=== PATIENT | male | born 1970 | race Caucasian/White ===

== ENCOUNTER 2023-05-11 15:41 | Inpatient (IN) ==
[2023-05-11] MEDS ORDERED: SODIUM CHLORIDE 0.9% 1,000 ML IV ONE (15:57)
[2023-05-11 16:21] LABS: Hematocrit (blood only) 43.3 % (42.0-52.0); Hemoglobin 15.7 g/dl (14.0-18.0); Mean Corpuscular Hemoglobin 30.6 pg (25.0-34.0); Mean Corpuscular Hgb Conc 36.3 g/dL (32.0-36.0); Mean Corpuscular Volume 84.4 fL (80.0-100.0); Mean Platelet Volume 8.8 fL (9.4-12.4); Platelet Count 208 K/uL (130-400); RDW Coefficient of Variation 12.7 % (11.5-14.5); RDW Standard Deviation 39.1 fL (36.4-46.3); Red Blood Count 5.13 M/uL (4.70-6.10); White Blood Count 16.61 K/ul (4.8-10.8)
[2023-05-11 16:33] LABS: Albumin Level 4.4 gm/dl (3.4-5.0); BUN Creatinine Ratio 14.5 (10-20); Bilirubin,Total 3.9 mg/dl (0.2-1.0); Calcium 8.7 mg/dl (8.6-10.3); Creatinine Clr Calc Pharmacy 70.4 ml/min; Est GFR (African American) 67.2 ml/min; Potassium 3.6 mmol/L (3.5-5.1); Total Protein 7.2 gm/dl (6.0-8.3)
[2023-05-11 16:38] LABS: Basophils # (auto) 0.03 K/uL (0.00-0.20); Basophils % (auto) 0.2 %; Dohle Bodies 1+; Immature Granulocytes # (auto) 0.06 K/uL (0.01-0.20); Immature Granulocytes % (auto) 0.4 %; Lymphocytes # (auto) 0.62 K/uL (1.20-3.40); Lymphocytes % (auto) 3.7 %; Monocytes # (auto) 0.63 K/uL (0.11-0.59); Monocytes % (auto) 3.8 %; Neutrophils # (auto) 15.27 K/uL (1.40-6.50); Neutrophils % (auto) 91.9 %
--- NOTE | 2023-05-11 17:35 | Ultrasound Report ---
ABDOMINAL ULTRASOUND, RIGHT UPPER QUADRANT HISTORY: Acute epigastric abdominal pain ro baljeet epigastric pain. COMPARISON: 10/23/2019 FINDINGS: Pancreas: The pancreas demonstrates a normal echotexture. Liver: 17.4 cm in length. Hepatic steatosis without hepatic mass identified. Gallbladder: Mild gallbladder distention with trace nonspecific pericholecystic fluid. No gallstones. Sonographic Geiger sign was unable to be assessed secondary to patient recently receiving pain medic ation. CBD: 0.5 cm. Right kidney: No hydronephrosis. IMPRESSION: 1. Trace nonspecific pericholecystic fluid. No cholelithiasis or gallbladder wall thickening. 2. Hepatomegaly with hepatic steatosis. 3. No biliary ductal dilation. ACT 112: Negative or not required by law. Electronically signed by: Corey Wilson M.D. 05/11/2023 5:34 PM
--- NOTE | 2023-05-11 17:45 | XRay Report ---
XR abdomen 2V w PA chest HISTORY: 52 years-old Male epigastric pain COMPARISON: 04/18/2022 TECHNIQUE: PA view the chest with erect and supine views of the abdomen FINDINGS: Cardiomediastinal and hilar silhouettes are within normal limits. No pneumothorax, pleural effusion, airspace consolidation or pulmonary edema. Mild right hemidiaphragmatic elevation. Bones appear gross ly intact. No pneumatosis or pneumoperitoneum. No urolith. Nonobstructive bowel gas pattern. IMPRESSION: 1. No acute process of the chest. 2. Nonobstructive bowel gas pattern. ACT 112: Negative or not required by law. The above report was generated using voice recognition software. It may contain grammatical, syntax o r spelling errors. Electronically signed by: Corey Wilson M.D. 05/11/2023 5:43 PM
[2023-05-11] MEDS ORDERED: MoRPHine SULFATE 4 MG/ML 1 ML CARP\\VIAL IV STA (18:11)
--- NOTE | 2023-05-11 21:02 | History & Physical Report ---
Date of Service May 11, 2023 Assessment & Plan (1) Abdominal pain: Plan: 52-year-old man with past medical significant for hyperlipidemia, hypothyroidism, sleep apnea, chronic kidney disease stage II, GERD, generalized osteoarthritis, Tourette's syndrome, chronic neck pain, PTSD, ADD, presents with ongoing abdominal pain. 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 for further recommendations Chest pain Says coming from abdomen We will follow serial enzymes and EKG History of hypothyroidism Continue other medications We will follow TSH Mild sleep apnea GERD on Protonix We will place on IV Pepcid Insomnia On Lunesta DVT prophylaxis SCDs for now Disposition med/telemetry Full code History of Present Illness Chief Complaint: Severe abdominal pain Primary Care Provider: Naman Shea MD 52-year-old man with past medical significant for hyperlipidemia, hypothyroidism, sleep apnea, chronic kidney disease stage II, GERD, generalized osteoarthritis, Tourette's syndrome, chronic neck pain, PTSD, ADD, presents with ongoing abdominal pain. Patient is having chronic abdominal pain states since he got shiga toxin infection in April 2022. Since yesterday pain got worse more in the epigastric and also lower abdomen radiating to back and right shoulder. Also with nausea and dry heaves. Feeling cold but no fevers. Couple of months ago he had some blood in the stool thought to be from hemorrhoids. Currently stools are loose but no blood in the stools. Urine is very dark. Has some chest pain but attributes it coming from his abdomen. When the pain is severe he feels short of breath. Having headaches. Vision is somewhat blurry. No runny nose or sore throat. No difficulty swallowing. Appetite is down. Says he is lost 30 pounds in last 2 months. He also follows with [facility]. Request test for stool for parasites. Past medical history as mentioned above Past surgical history. S/p cardiac cath. Colonoscopy. EGD. EGD with endoscopic ultrasound. Left rebuild eardrum structures. Inguinal hernia repair. Left shoulder arthroscopy. Social history. . No smoking. No alcohol use. No drug use. Family history. Paternal grandfather had colon cancer. Mother had cancer. Father had hyperlipidemia. Hypertension. Stroke. Sister hyperlipidemia. Brother had CABG at age 39. Uncle had cancers. Allergies Allergy/AdvReac Type Severity Reaction Status Date / Time bacitracin Allergy Intermediate ITCHING, Verified 05/11/23 19:30 SEEPING RASH neomycin Allergy Intermediate ITCHING, Verified 05/11/23 19:30 SEEPING RASH Penicillins Allergy Intermediate HIVES Verified 05/11/23 19:30 polymyxin B Allergy Intermediate ITCHING, Verified 05/11/23 19:30 SEEPING RASH quetiapine [From Seroquel] Allergy Intermediate Unknown Verified 05/11/23 19:30 ketamine AdvReac Severe VIOLENT Verified 05/11/23 19:30 BEHAVOIR trazodone AdvReac Severe CHEST Verified 05/11/23 19:30 HEAVINESS Home Medications Medication Instructions Recorded Confirmed Type eszopiclone 3 mg tablet 3 mg PO HS 05/11/23 05/11/23 History fluticasone propionate 230 1 puff inhalation BID 05/11/23 05/11/23 History mcg-salmeterol 21 mcg/actuation HFA inhaler (Advair HFA) lisinopril 2.5 mg tablet 2.5 mg PO QAM 05/11/23 05/11/23 History mupirocin 2 % topical ointment 1 applic topical BID PRN .. 05/11/23 05/11/23 History pantoprazole 40 mg tablet,delayed 40 mg PO QAM 05/11/23 05/11/23 History release Past Med/Surg History Medical History Anxiety BPH (benign prostatic hyperplasia) Cardiac murmur A CHILD GERD (gastroesophageal reflux disease) Hyperlipidemia Idiopathic insomnia Migraine Moderate obstructive sleep apnea Per 07/25/21 Sleep Disoder note- attempting to get patient set up with BiPAP- could not tolerate CPAP Multiple thyroid nodules Osteoarthritis NECK (NORMAL ROM), BACK PTSD (post-traumatic stress disorder) SEVERE Tourette disease Surgical History H/O left inguinal hernia repair H/O rotator cuff surgery L History of anesthesia reaction VERY VIOLENT WITH KETAMINE History of cardiac cath 2018 [facility]. Mild nonobstructive CAD. History of colonoscopy History of esophagogastroduodenoscopy (EGD) S/P ear surgery L EARDRUM REPAIR S/P thyroid biopsy Family History Brother Stroke Diabetes Myocardial infarction Father Alzheimer disease Parkinson disease Stroke Mother Brain cancer Sister High cholesterol Grandmother (Maternal) No problems noted. Grandfather (Maternal) No problems noted. Grandmother (Paternal) Diabetes Alzheimer disease Parkinson disease Grandfather (Paternal) Colorectal cancer Prostate cancer Diabetes Parkinson disease Family/Other Tourette syndrome Social History Smoking Status: Never smoker Second Hand Exposure: No; Do You Dip or Chew Tobacco: No; Hx Alcohol Use: No Hx Substance Use: No Preferred Language: Ethiopian Communication Ability: Effective Program Manager Rn Required: No Beliefs That Will Affect Care: None Current Living Situation: Spouse Current Living Situation Comment: lives at home with Other Information That Helps Us Care for You: No Feels Safe at Home: Yes Safety Concerns: Feels Safe At This Time Assistive Devices: Glasses Review of Systems Review of Systems: All systems reviewed & are unremarkable except as noted in HPI & below Physical Exam Physical Exam: General- Not in distress Head- atraumatic Eyes- PERRL,mild icterus. ENT- oropharynx clear Neck- supple, no JVD. Lungs- clear to auscultation, no wheezing or crakles. Heart- regular rhythm; no murmur, no gallop. Abdomen- normal bowel sounds, soft, tenderness in epigastric region and lower abdomen No distension or guarding seen. Extremities- no pretibial edema, no eryhtema seen. Neuro- alert, oriented x 3; PERRL, no facial palsy; no dysarthria; Non focal. Skin- warm & dry Results & Data Results & Data Vital Signs (Past 12 Hours) Vital Signs Temp Pulse Pulse Resp BP BP Pulse Ox 05/11/23 20:35 82 20 129/77 94 05/11/23 18:14 85 18 105/68 98 05/11/23 16:31 104 H 05/11/23 15:52 36.8 C 104 H 20 111/82 93 O2 Del Method 05/11/23 20:35 Room Air 05/11/23 18:14 Room Air 05/11/23 16:31 05/11/23 15:52 Room Air Diagnostic Findings Laboratory Results WBC 16.61 K/ul (4.8-10.8) H 05/11/23 16:03 RBC 5.13 M/uL (4.70-6.10) 05/11/23 16:03 Hgb 15.7 g/dl (14.0-18.0) 05/11/23 16:03 Hct 43.3 % (42.0-52.0) 05/11/23 16:03 MCV 84.4 fL (80.0-100.0) 05/11/23 16:03 MCH 30.6 pg (25.0-34.0) 05/11/23 16:03 MCHC 36.3 g/dL (32.0-36.0) H 05/11/23 16:03 RDW Std Deviation 39.1 fL (36.4-46.3) 05/11/23 16:03 RDW Coeff of Javier 12.7 % (11.5-14.5) 05/11/23 16:03 Plt Count 208 K/uL (130-400) 05/11/23 16:03 MPV 8.8 fL (9.4-12.4) L 05/11/23 16:03 Immature Gran % (Auto) 0.4 % 05/11/23 16:03 Neut % (Auto) 91.9 % 05/11/23 16:03 Lymph % (Auto) 3.7 % 05/11/23 16:03 [place] % (Auto) 3.8 % 05/11/23 16:03 Eos % (Auto) 0.0 % 05/11/23 16:03 Baso % (Auto) 0.2 % 05/11/23 16:03 Neut # (Auto) 15.27 K/uL (1.40-6.50) H 05/11/23 16:03 Lymph # (Auto) 0.62 K/uL (1.20-3.40) L 05/11/23 16:03 [place] # (Auto) 0.63 K/uL (0.11-0.59) H 05/11/23 16:03 Eos # (Auto) 0.00 K/uL (0.00-0.50) 05/11/23 16:03 Baso # (Auto) 0.03 K/uL (0.00-0.20) 05/11/23 16:03 Immature Gran # (Auto) 0.06 K/uL (0.01-0.20) 05/11/23 16:03 Dohle Bodies 1+ 05/11/23 16:03 Sodium 136 mmol/L (136-145) 05/11/23 16:03 Potassium 3.6 mmol/L (3.5-5.1) 05/11/23 16:03 Chloride 103 mmol/L (98-107) 05/11/23 16:03 Carbon Dioxide 23 mmol/L (21-32) 05/11/23 16:03 Anion Gap 10 (3-11) 05/11/23 16:03 BUN 20 mg/dl (6-23) 05/11/23 16:03 Creatinine 1.38 mg/dl (0.6-1.4) 05/11/23 16:03 Est Cr Clr Drug Dosing 70.4 ml/min 05/11/23 16:03 Est GFR ( Amer) 67.2 ml/min 05/11/23 16:03 Est GFR (Non-Af Amer) 58.0 ml/min 05/11/23 16:03 BUN/Creatinine Ratio 14.5 (10-20) 05/11/23 16:03 Glucose 150 mg/dl (70-99(Fasting)) H 05/11/23 16:03 Calcium 8.7 mg/dl (8.6-10.3) 05/11/23 16:03 Total Bilirubin 3.9 mg/dl (0.2-1.0) H 05/11/23 16:03 Direct Bilirubin 2.0 mg/dl (0-0.2) H 05/11/23 16:03 AST 183 U/L (13-39) H 05/11/23 16:03 ALT 284 U/L (7-52) H 05/11/23 16:03 Alkaline Phosphatase 130 U/L (34-104) H 05/11/23 16:03 Total Protein 7.2 gm/dl (6.0-8.3) 05/11/23 16:03 Albumin 4.4 gm/dl (3.4-5.0) 05/11/23 16:03 Lipase 5 U/L (11-82) L 05/11/23 16:03 Impressions Chest/Abdomen X-ray 05/11/23 16:49 XR abdomen 2V w PA chest HISTORY: 52 years-old Male epigastric pain COMPARISON: 04/18/2022 TECHNIQUE: PA view the chest with erect and supine views of the abdomen FINDINGS: Cardiomediastinal and hilar silhouettes are within normal limits. No pneumothorax, pleural effusion, airspace consolidation or pulmonary edema. Mild right hemidiaphragmatic elevation. Bones appear grossly intact. No pneumatosis or pneumoperitoneum. No urolith. Nonobstructive bowel gas pattern. IMPRESSION: 1. No acute process of the chest. 2. Nonobstructive bowel gas pattern. ACT 112: Negative or not required by law. The above report was generated using voice recognition software. It may contain grammatical, syntax or spelling errors. Electronically signed by: Corey Wilson M.D. 05/11/2023 5:43 PM Gallbladder Ultrasound 05/11/23 16:49 ABDOMINAL ULTRASOUND, RIGHT UPPER QUADRANT HISTORY: Acute epigastric abdominal pain ro baljeet epigastric pain. COMPARISON: 10/23/2019 FINDINGS: Pancreas: The pancreas demonstrates a normal echotexture. Liver: 17.4 cm in length. Hepatic steatosis without hepatic mass identified. Gallbladder: Mild gallbladder distention with trace nonspecific pericholecystic fluid. No gallstones. Sonographic Geiger sign was unable to be assessed secondary to patient recently receiving pain medication. CBD: 0.5 cm. Right kidney: No hydronephrosis. IMPRESSION: 1. Trace nonspecific pericholecystic fluid. No cholelithiasis or gallbladder wall thickening. 2. Hepatomegaly with hepatic steatosis. 3. No biliary ductal dilation. ACT 112: Negative or not required by law. Electronically signed by: Corey Wilson M.D. 05/11/2023 5:34 PM Code Status & VTE Plan VTE Prophylaxis Plan VTE Prophylaxis will be ordered: Yes
--- NOTE | 2023-05-11 21:07 | Emergency Department Note ---
History of Present Illness General Chief Complaint: Abdominal Pain Time Seen by Provider: 05/11/23 15:57 History of Present Illness Provider Complaint: abdominal pain Onset (ago): 2 day(s) Pain Consistency: intermittent Location: epigastric Radiation: back Severity: moderate Maximum Pain Intensity: 7 Current Pain Intensity: 6 Quality: + stabbing and + sharp Relieved By: + nothing Exacerbated By: + nothing Context: no foreign travel, no possible food poisoning, no sick contacts, no recent antibiotic use, no recent surgery/procedure or no recent injury Associated Symptoms: + nausea and + vomiting; no diarrhea, no fever, no chills, no constipation, no dysuria, no hematemesis, no hematochezia, no melena, no hematuria, no syncope, no headache, no neck pain, no chest pain and no breathing difficulty Home Medications Medication Instructions Recorded Confirmed Type eszopiclone 3 mg tablet 3 mg PO HS 05/11/23 05/11/23 History fluticasone propionate 230 1 puff inhalation BID 05/11/23 05/11/23 History mcg-salmeterol 21 mcg/actuation HFA inhaler (Advair HFA) lisinopril 2.5 mg tablet 2.5 mg PO QAM 05/11/23 05/11/23 History mupirocin 2 % topical ointment 1 applic topical BID PRN .. 05/11/23 05/11/23 History pantoprazole 40 mg tablet,delayed 40 mg PO QAM 05/11/23 05/11/23 History release Allergies Allergy/AdvReac Type Severity Reaction Status Date / Time bacitracin Allergy Intermediate ITCHING, Verified 05/11/23 19:30 SEEPING RASH neomycin Allergy Intermediate ITCHING, Verified 05/11/23 19:30 SEEPING RASH Penicillins Allergy Intermediate HIVES Verified 05/11/23 19:30 polymyxin B Allergy Intermediate ITCHING, Verified 05/11/23 19:30 SEEPING RASH quetiapine [From Seroquel] Allergy Intermediate Unknown Verified 05/11/23 19:30 ketamine AdvReac Severe VIOLENT Verified 05/11/23 19:30 BEHAVOIR trazodone AdvReac Severe CHEST Verified 05/11/23 19:30 HEAVINESS Past Med/Surg History Medical History Anxiety BPH (benign prostatic hyperplasia) Cardiac murmur A CHILD GERD (gastroesophageal reflux disease) Hyperlipidemia Idiopathic insomnia Migraine Moderate obstructive sleep apnea Per 07/25/21 Sleep Disoder note- attempting to get patient set up with BiPAP- could not tolerate CPAP Multiple thyroid nodules Osteoarthritis NECK (NORMAL ROM), BACK PTSD (post-traumatic stress disorder) SEVERE Tourette disease Surgical History H/O left inguinal hernia repair H/O rotator cuff surgery L History of anesthesia reaction VERY VIOLENT WITH KETAMINE History of cardiac cath 2018 [facility]. Mild nonobstructive CAD. History of colonoscopy History of esophagogastroduodenoscopy (EGD) S/P ear surgery L EARDRUM REPAIR S/P thyroid biopsy Family History Brother Stroke Diabetes Myocardial infarction Father Alzheimer disease Parkinson disease Stroke Mother Brain cancer Sister High cholesterol Grandmother (Maternal) No problems noted. Grandfather (Maternal) No problems noted. 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: No Beliefs That Will Affect Care: None Current Living Situation: Spouse Feels Safe at Home: Yes Assistive Devices: Glasses Physical Exam Vital Signs: Vital Signs - 24 hr 05/11/23 15:52 05/11/23 16:31 05/11/23 18:14 Temperature 36.8 C Temperature Source Oral Pulse Rate 104 H 104 H Pulse Rate [Finger ] 85 Respiratory Rate 20 18 Blood Pressure 111/82 Blood Pressure [Ri ght Arm] 105/68 Blood Pressure Antonietta n 91 Blood Pressure Antonietta n [Right Arm] 80 Blood Pressure Pos ition Semi-fowlers Blood Pressure Pos ition [Right Arm] Semi-fowlers Pulse Oximetry 93 98 Oxygen Delivery Me thod Room Air Room Air Sepsis Recent Feve r Within 48 Hours No Sepsis New/Unexpla ined Change in Men alvaro Status N/A Sepsis Action Take n by Nursing No Action Required 05/11/23 20:35 Temperature Temperature Source Pulse Rate Pulse Rate [Finger ] 82 Respiratory Rate 20 Blood Pressure Blood Pressure [Ri ght Arm] 129/77 Blood Pressure Antonietta n Blood Pressure Antonietta n [Right Arm] 94 Blood Pressure Pos ition Blood Pressure Pos ition [Right Arm] Semi-fowlers Pulse Oximetry 94 Oxygen Delivery Me thod Room Air Sepsis Recent Feve r Within 48 Hours Sepsis New/Unexpla ined Change in Men alvaro Status Sepsis Action Take n by Nursing Physical Exam: Physical Exam GENERAL: She is oriented to person, place, and time. She appears well-developed and well-nourished. She does not appear distressed. HENT: Exam performed. -Head: Normocephalic and atraumatic. -Right Ear: External ear normal. No mastoid erythema -Left Ear: External ear normal. No mastoid erythema -Mouth/Throat: The oropharynx is clear and moist. No trismus in the jaw. No dental abscesses or uvula swelling. No oropharyngeal exudate or tonsillar abscesses. EYES: Conjunctivae and EOM are normal.Right eye exhibits no discharge. Left eye exhibits no discharge. No scleral icterus. NECK: Normal range of motion. Neck supple. No JVD present. No tracheal deviation and normal range of motion present. CV: Normal rate, regular rhythm, normal heart sounds and intact distal pulses. There is no peripheral edema. Palpable radial pulses bue. PULM/CHEST: Effort normal and breath sounds normal. No respiratory distress. No stridor. She has no wheezes. She has no rales. -Chest Wall: She exhibits no tenderness. ABD: The abdomen is soft. Bowel sounds are normal. She has no distension. No mass is present. There is tenderness to palpation of the epigastric area. There is no rebound, no guarding, no Geiger's sign and no tenderness at McBurney's point. Rovsig negative MUSC/SKEL: Normal range of motion. There is no peripheral edema, tenderness or deformity. NEURO: Motor and sensation grossly intact. SKIN: Skin is warm and dry. She is not diaphoretic. PSYCH: She has a normal mood and affect. Behavior is normal. Judgment and thought content normal. Course Course 1557: The patient was evaluated in room C4. A complete history and physical exam was performed Cardiac monitoring: An order was placed for continuous cardiac monitoring. The monitor shows a rate of 80 with sinus rhythm interpreted by il 1855: Vital signs stable. Labs show leukocytosis of 16.61. Neutrophils 15.27. Total bilirubin 3.9 direct bilirubin 2 AST 183 ALT 284 alkaline phosphatase 130 lipase is 5. Ultrasound shows no cholecystitis cholelithiasis or biliary ductal dilatation. Acute abdominal series negative. Given the patient's continued abdominal pain and elevated liver function test, the patient will be admitted for GI evaluation and possible HIDA scan. Discussed case with Tiffany Griffin [facility] hospitalist who stated to admit to Dr. Rodríguez Administered Medications Discontinued Medications Sodium Chloride (Nss) 1,000 mls @ 999 mls/hr IV .Q1H1M ONE Stop: 05/11/23 16:57 Last Infusion: 05/11/23 18:42 Dose: 0 mls/hr Documented By: Admin: 05/11/23 16:09 Dose: 999 mls/hr Documented By: Morphine Sulfate (Morphine Sulfate 4 Mg/Ml 1 Ml Carp\Vial) 4 mg IV NOW STA Stop: 05/11/23 18:12 Last Admin: 05/11/23 18:14 Dose: 4 mg Documented By: Medical Decision Making Laboratory Data Attestation: I reviewed the patient's lab results. 05/11/23 16:03 05/11/23 16:03 Lab Results 05/11/23 05/11/23 05/11/23 Range/Units 16:03 16:03 16:03 WBC 16.61 H (4.8-10.8) K/ul RBC 5.13 (4.70-6.10) M/uL Hgb 15.7 (14.0-18.0) g/dl Hct 43.3 (42.0-52.0) % MCV 84.4 (80.0-100.0) fL MCH 30.6 (25.0-34.0) pg MCHC 36.3 H (32.0-36.0) g/dL RDW Std Deviation 39.1 (36.4-46.3) fL RDW Coeff of Javier 12.7 (11.5-14.5) % Plt Count 208 (130-400) K/uL MPV 8.8 L (9.4-12.4) fL Immature Gran % (Auto) 0.4 % Neut % (Auto) 91.9 % Lymph % (Auto) 3.7 % [place] % (Auto) 3.8 % Eos % (Auto) 0.0 % Baso % (Auto) 0.2 % Neut # (Auto) 15.27 H (1.40-6.50) K/uL Lymph # (Auto) 0.62 L (1.20-3.40) K/uL [place] # (Auto) 0.63 H (0.11-0.59) K/uL Eos # (Auto) 0.00 (0.00-0.50) K/uL Baso # (Auto) 0.03 (0.00-0.20) K/uL Immature Gran # (Auto) 0.06 (0.01-0.20) K/uL Dohle Bodies 1+ Sodium 136 (136-145) mmol/L Potassium 3.6 (3.5-5.1) mmol/L Chloride 103 (98-107) mmol/L Carbon Dioxide 23 (21-32) mmol/L Anion Gap 10 (3-11) BUN 20 (6-23) mg/dl Creatinine 1.38 (0.6-1.4) mg/dl Est Cr Clr Drug Dosing 70.4 ml/min Est GFR ( Amer) 67.2 ml/min Est GFR (Non-Af Amer) 58.0 ml/min BUN/Creatinine Ratio 14.5 (10-20) Glucose 150 H (70-99(Fasting)) mg/dl Calcium 8.7 (8.6-10.3) mg/dl Total Bilirubin 3.9 H (0.2-1.0) mg/dl Direct Bilirubin 2.0 H (0-0.2) mg/dl AST 183 H (13-39) U/L ALT 284 H (7-52) U/L Alkaline Phosphatase 130 H (34-104) U/L Total Protein 7.2 (6.0-8.3) gm/dl Albumin 4.4 (3.4-5.0) gm/dl Lipase 5 L (11-82) U/L Imaging Data Attestation: I personally reviewed and interpreted this imaging study as follows: My Impression: Acute abdominal series: Chest x-ray negative. Airway clear. No pneumothorax. No consolidation. No cardiomegaly or cephalization.. No free air under the diaphragm. No fractures of the skeletal structures. No air-fluid levels nonspecific bowel gas pattern. Radiologist's Impression: Chest/Abdomen X-ray 05/11/23 16:49 XR abdomen 2V w PA chest HISTORY: 52 years-old Male epigastric pain COMPARISON: 04/18/2022 TECHNIQUE: PA view the chest with erect and supine views of the abdomen FINDINGS: Cardiomediastinal and hilar silhouettes are within normal limits. No pneumothorax, pleural effusion, airspace consolidation or pulmonary edema. Mild right hemidiaphragmatic elevation. Bones appear grossly intact. No pneumatosis or pneumoperitoneum. No urolith. Nonobstructive bowel gas p attern. IMPRESSION: 1. No acute process of the chest. 2. Nonobstructive bowel gas pattern. ACT 112: Negative or not required by law. The above report was generated using voice recognition software. It may contain grammatical, syntax or spelling errors. Electronically signed by: Corey Wilson M.D. 05/11/2023 5:43 PM Gallbladder Ultrasound 05/11/23 16:49 ABDOMINAL ULTRASOUND, RIGHT UPPER QUADRANT HISTORY: Acute epigastric abdominal pain ro baljeet epigastric pain. COMPARISON: 10/23/2019 FINDINGS: Pancreas: The pancreas demonstrates a normal echotexture. Liver: 17.4 cm in length. Hepatic steatosis without hepatic mass identified. Gallbladder: Mild gallbladder distention with trace nonspecific pericholecystic fluid. No gallstones. Sonographic Geiger sign was unable to be assessed secondary to patient recently receiving pain medication. CBD: 0.5 cm. Right kidney: No hydronephrosis. IMPRESSION: 1. Trace nonspecific pericholecystic fluid. No cholelithiasis or gallbladder wall thickening. 2. Hepatomegaly with hepatic steatosis. 3. No biliary ductal dilation. ACT 112: Negative or not required by law. Electronically signed by: Corey Wilson M.D. 05/11/2023 5:34 PM [facility] Narrative 1557: The patient was evaluated in room C4. A complete history and physical exam was performed Cardiac monitoring: An order was placed for continuous cardiac monitoring. The monitor shows a rate of 80 with sinus rhythm interpreted by me 1855: Vital signs stable. Labs show leukocytosis of 16.61. Neutrophils 15.27. Total bilirubin 3.9 direct bilirubin 2 AST 183 ALT 284 alkaline phosphatase 130 lipase is 5. Ultrasound shows no cholecystitis cholelithiasis or biliary ductal dilatation. Acute abdominal series negative. Given the patient's continued abdominal pain and elevated liver function test, the patient will be admitted for GI evaluation and possible HIDA scan. Discussed case with Tiffany Griffin [facility] hospitalist who stated to admit to Dr. Rodríguez Impression & Plan Abdominal pain, Transaminitis Discharge Plan Visit Data Chief Complaint: Abdominal Pain ED Provider: Srinivasa Gregory Discharge Problem: Abdominal pain, Transaminitis Patient Disposition: Admitted As Inpatient Forms Stand Alone Forms: [facility] Prescriptions Prescriptions: No Action pantoprazole 40 mg tablet,delayed release (DR/EC) 40 mg PO QAM mupirocin 2 % ointment 1 applic TOPICAL BID PRN (Reason: ..) lisinopril 2.5 mg tablet 2.5 mg PO QAM eszopiclone 3 mg tablet 3 mg PO HS fluticasone propion-salmeterol [Advair HFA] 230-21 mcg/actuation HFA aerosol inhaler 1 puff INHALATION BID Referrals Referrals: Naman Shea MD [Primary Care Provider] -
[2023-05-11] MEDS ORDERED: SODIUM CHLORIDE 0.9% 1,000 ML IV SCH (21:15)
[2023-05-11] MEDS ORDERED: HYDROmorphone INJ 0.5 MG/0.5 ML SYR IV STA (22:09)
[2023-05-11 22:25] LABS: Troponin I High Sensitivity 6.8 pg/ml (0-20)
[2023-05-12] MEDS ORDERED: NITROGLYCERIN SL 0.4 MG/TAB TAB SL PRN (00:53)
[2023-05-12] MEDS ORDERED: MUPIROCIN 2% OINT 22 GM TUBE TOP PRN (00:53)
[2023-05-12] MEDS ORDERED: OPTIRAY 320 100ml IV ONE (01:24)
[2023-05-12] MEDS: HYDROmorphone INJ 0.5 MG/0.5 ML SYR IV PRN ×2 (01:49→09:23)
[2023-05-12] MEDS: FAMOTIDINE 20 MG in SYRINGE 3 ML IV SCH ×3 (01:49→20:41)
[2023-05-12] MEDS: ESZOPICLONE 1 MG TAB PO SCH ×2 (01:49→20:44)
[2023-05-12] MEDS: D5W AND 1/2NSS 1,000 ML IV SCH ×3 (01:50→21:40)
[2023-05-12] MEDS: FLUTICASONE/VILANTEROL 200/25MCG 14 PUFFS/INHALER INH SCH (01:53)
--- NOTE | 2023-05-12 04:08 | CT Scan Report ---
Exam(s): CT ABDOMEN + PELVIS With Contrast IV Amt: 90 ml opti 320 EXAM: CT Abdomen and Pelvis With Intravenous Contrast CLINICAL HISTORY: Reason for exam: severe epigastric and lower abdominal pain, lft. TECHNIQUE: Axial computed tomography images of the abdomen and pelvis with intravenous contrast. CTDI is 27.47 mGy and DLP is 1381.63 mGy-cm. Automated exposure control was utilized for the study. A dose lowering technique was utilized adhering to the principles of ALARA. CONTRAST: Patient received 90 ml opti 320 of IV contrast COMPARISON: No relevant prior studies available. FINDINGS: Lung bases: Unremarkable. No mass. No consolidation. ABDOMEN: Liver: Fatty infiltration of the liver. Gallbladder and bile ducts: Unremarkable. No calcified stones. No ductal dilation. Pancreas: Unremarkable. No mass. No ductal dilation. Spleen: Unremarkable. No splenomegaly. Adrenals: Unremarkable. No mass. Kidneys and ureters: Unremarkable. No solid mass. No hydronephrosis. Stomach and bowel: Unremarkable. No obstruction. No mucosal thickening. PELVIS: Appendix: No findings to suggest acute appendicitis. Bladder: Unremarkable. No mass. Reproductive: Unremarkable as visualized. ABDOMEN and PELVIS: Intraperitoneal space: Unremarkable. No free air. No significant fluid collection. Bones/joints: No acute fracture. No dislocation. Soft tissues: Unremarkable. Vasculature: Unremarkable. No abdominal aortic aneurysm. Lymph nodes: Unremarkable. No enlarged lymph nodes. IMPRESSION: No acute findings in the abdomen or pelvis. Electronically signed by: Hernan Conway MD 05/12/23 04:07 AM
[2023-05-12 05:17] LABS: Basophils # (auto) 0.02 K/uL (0.00-0.20); Basophils % (auto) 0.2 %; Eosinophils # (auto) 0.02 K/uL (0.00-0.50); Eosinophils % (auto) 0.2 %; Hematocrit (blood only) 40.2 % (42.0-52.0); Hemoglobin 14.2 g/dl (14.0-18.0); Immature Granulocytes # (auto) 0.03 K/uL (0.01-0.20); Immature Granulocytes % (auto) 0.3 %; Lymphocytes # (auto) 0.81 K/uL (1.20-3.40); Lymphocytes % (auto) 8.1 %; Mean Corpuscular Hemoglobin 30.2 pg (25.0-34.0); Mean Corpuscular Hgb Conc 35.3 g/dL (32.0-36.0); Mean Corpuscular Volume 85.5 fL (80.0-100.0); Mean Platelet Volume 9.1 fL (9.4-12.4); Monocytes # (auto) 0.62 K/uL (0.11-0.59); Monocytes % (auto) 6.2 %; Neutrophils # (auto) 8.48 K/uL (1.40-6.50); Platelet Count 170 K/uL (130-400); RDW Standard Deviation 40.4 fL (36.4-46.3); White Blood Count 9.98 K/ul (4.8-10.8)
[2023-05-12 05:32] LABS: BUN Creatinine Ratio 14.3 (10-20); Bilirubin Direct 2.4 mg/dl (0-0.2); Bilirubin,Total 4.5 mg/dl (0.2-1.0); Calcium 8.3 mg/dl (8.6-10.3); Creatinine Clr Calc Pharmacy 77.1 ml/min; Est GFR (Non-African American) 64.7 ml/min; Magnesium 1.8 mg/dl (1.7-2.4); Potassium 3.4 mmol/L (3.5-5.1); Total Protein 6.4 gm/dl (6.0-8.3)
[2023-05-12 05:39] LABS: Troponin I High Sensitivity 6.4 pg/ml (0-20)
[2023-05-12 05:48] LABS: Thyroid Stimulating Hormone 0.655 uIu/ml (0.300-4.500)
[2023-05-12] MEDS: PANTOprazole 40 MG TAB PO SCH (07:20)
--- NOTE | 2023-05-12 09:00 | Gastrointestinal Consultation ---
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 admitted with abd pain, fevers, chills, scleral icterus, dark urine, elevated Tbili, previous EUS reviewed, CT and ABD US reviewed NPO EUS today +/- ERCP Check acute hep, arsh, ama, asma Will defer repeat HIV screening to primary service Recommend ABX with biliary coverage given fevers last evening Anti emetics PRN Analgesia PRN Continued follow up for POZO w/ mild fibrosis as scheduled in office We appreciate assistance in the management of any serological abnormality and corrections to include: hemoglobin >7, INR <2, platelets >50,000, potassium levels >3.5 but <5.3, and sodium levels within 5 points of the reference range prior to endoscopic evaluation. Thank you for allowing us to participate in the care of this patient. Please call with any acute changes, questions or concerns. Please see addendum below with additional recommendation from my supervising physician. Supervising Physician Co-Signing Physician Notes Attending attestation I have seen, examined this patient, and agree with the findings and above by our mid-level provider GUILHERME Richards, with the following additions: - Chronic intermittant ruq and generalized abdominal pain - Now with worsened pain and worsened LFT's, and although no evidence of biliary obstruction, he has a compelling story and is at least moderate possibility for obstructive process that is acute given labs and pain. -Will require ancillary additional imaging, will plan for EUS +/- ERCP today - Continue NPO History of Present Illness Reason for Consultation: elevated LFTs Requesting Physician: Miguel Attending Physician: Leyda Rivera MD History of Present Illness 52 year old male with history of KRISHNA, dyslipidemia, hypothyroidism, CKD, Shiga toxin following with ID who is admitted w/ abd pain. GI was asked to evaluate. He notes chronic abd pain at least x 1 year. Upper abd, midline and RUQ. Intermittent. Severe. Radiates to his back. Some nausea, vomiting. Decreased appetite. Chronic diarrhea, denies black or bloody stools. noted scleral icterus 1 day ago. For about a week his urine has been darker. Has had about 20 lb weight loss. + fever + chills No CP, SOB. 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 ALT 233 ALKP 109 Denies ETOH Denies tylenol Denies supplements No IV/IN drug use history LB 2021: biopsy of the liver is consistent with steatosis and steatohepatitis (fatty liver disease). There was focal mild fibrosis (stage 1/4) with no e vidence of cirrhosis. CTAP 2022: iver: Fatty infiltration of the liver. Gallbladder and bile ducts: Unremarkable. No calcified stones. Noductal dilation. Pancreas: Unremarkable. No mass. No ductal dilation. ABD us 2022: . Trace nonspecific pericholecystic fluid. No cholelithiasis or gallbladder wall thickening. 2. Hepatomegaly with hepatic steatosis. 3. No biliary ductal dilation. EUS 2021: Normal esophagus. - Normal stomach. - Normal duodenal bulb and second portion of the duodenum. - Periampullary diverticulum. - There was no sign of significant pathology in the ampulla. - There was no sign of significant pathology in the common bile duct. - Hyperechoic material consistent with sludge was visualized endosonographically in the gallbladder. - There was abnormal echogenicity in the liver suggestive of fatty infiltration. Fine needle biopsy performed. - A 4 mm cyst was seen in the pancreatic body with no worrisome features likely a side branch IPMN. - There was no sign of significant pathology in the entire pancreas. - Endosonographic images of the left adrenal gland were unremarkable. - The celiac trunk was endosonographically normal. Colon 2019: The examined portion of the ileum was normal. - Two 6 mm polyps in the transverse colon, removed with a cold snare. Resected and retrieved. - Diverticulosis in the sigmoid colon. - Non-bleeding internal hemorrhoids. Allergies Allergy/AdvReac Type Severity Reaction Status Date / Time bacitracin Allergy Intermediate ITCHING, Verified 05/11/23 19:30 SEEPING RASH neomycin Allergy Intermediate ITCHING, Verified 05/11/23 19:30 SEEPING RASH Penicillins Allergy Intermediate HIVES Verified 05/11/23 19:30 polymyxin B Allergy Intermediate ITCHING, Verified 05/11/23 19:30 SEEPING RASH quetiapine [From Seroquel] Allergy Intermediate Unknown Verified 05/11/23 19:30 ketamine AdvReac Severe VIOLENT Verified 05/11/23 19:30 BEHAVOIR trazodone AdvReac Severe CHEST Verified 05/11/23 19:30 HEAVINESS Home Medications Medication Instructions Recorded Confirmed Type eszopiclone 3 mg tablet 3 mg PO HS 05/11/23 05/11/23 History fluticasone propionate 230 1 puff inhalation BID 05/11/23 05/11/23 History mcg-salmeterol 21 mcg/actuation HFA inhaler (Advair HFA) lisinopril 2.5 mg tablet 2.5 mg PO QAM 05/11/23 05/11/23 History mupirocin 2 % topical ointment 1 applic topical BID PRN .. 05/11/23 05/11/23 History pantoprazole 40 mg tablet,delayed 40 mg PO QAM 05/11/23 05/11/23 History release Patient History Medical History Anxiety BPH (benign prostatic hyperplasia) Cardiac murmur A CHILD GERD (gastroesophageal reflux disease) Hyperlipidemia Idiopathic insomnia Migraine Moderate obstructive sleep apnea Per 07/25/21 Sleep Disoder note- attempting to get patient set up with BiPAP- could not tolerate CPAP Multiple thyroid nodules Osteoarthritis NECK (NORMAL ROM), BACK PTSD (post-traumatic stress disorder) SEVERE Tourette disease Surgical History H/O left inguinal hernia repair H/O rotator cuff surgery L History of anesthesia reaction VERY VIOLENT WITH KETAMINE History of cardiac cath 2019 [facility]. Mild nonobstructive CAD. History of colonoscopy History of esophagogastroduodenoscopy (EGD) S/P ear surgery L EARDRUM REPAIR S/P thyroid biopsy Family History Brother Stroke Diabetes Myocardial infarction Father Alzheimer disease Parkinson disease Stroke Mother Brain cancer Sister High cholesterol Grandmother (Maternal) No problems noted. Grandfather (Maternal) No problems noted. Grandmother (Paternal) Diabetes Alzheimer disease Parkinson disease Grandfather (Paternal) Colorectal cancer Prostate cancer Diabetes Parkinson disease Family/Other Tourette syndrome Social History Smoking Status: Never smoker Second Hand Exposure: No; Do You Dip or Chew Tobacco: No; Hx Alcohol Use: No Hx Substance Use: No Preferred Language: Serbian Communication Ability: Effective Detacker Required: No Beliefs That Will Affect Care: None Current Living Situation: Spouse Current Living Situation Comment: lives at home with Other Information That Helps Us Care for You: No Feels Safe at Home: Yes Safety Concerns: Feels Safe At This Time Assistive Devices: Glasses Review of Systems Review of Systems: All systems reviewed & are unremarkable except as noted in HPI & below Physical Exam Constitutional: WD/WN, vitals as above Respiratory: normal respiratory effort, lungs clear to auscultation Cardiovascular: Rate/Rhythm: regular rate and regular rhythm Gastrointestinal (Abdomen): Inspection/Auscultation: normal bowel sounds Percussion/Palpation: + abdomen tender and abdomen soft; no guarding and abdomen not rigid Skin: no rashes, warm and dry Results & Data Vital Signs (Past 12 Hours) Vital Signs Temp Pulse Pulse Resp BP Pulse Ox O2 Del Method 05/12/23 07:15 Room Air 05/12/23 07:21 37.4 C 92 H 14 120/76 94 Room Air 05/12/23 03:09 37.7 C H 94 H 16 131/69 94 Room Air 05/12/23 01:28 112 H 05/12/23 00:54 37.8 C H 103 H 12 124/72 93 Room Air 05/11/23 23:00 85 20 129/77 98 Room Air Laboratory Results 05/12/23 05/12/23 05/12/23 Range/Units 04:38 04:38 04:38 WBC 9.98 (4.8-10.8) K/ul RBC 4.70 (4.70-6.10) M/uL Hgb 14.2 (14.0-18.0) g/dl Hct 40.2 L (42.0-52.0) % MCV 85.5 (80.0-100.0) fL MCH 30.2 (25.0-34.0) pg MCHC 35.3 (32.0-36.0) g/dL RDW Std Deviation 40.4 (36.4-46.3) fL RDW Coeff of Javier 13.0 (11.5-14.5) % Plt Count 170 (130-400) K/uL MPV 9.1 L (9.4-12.4) fL Immature Gran % (Auto) 0.3 % Neut % (Auto) 85.0 % Lymph % (Auto) 8.1 % [place] % (Auto) 6.2 % Eos % (Auto) 0.2 % Baso % (Auto) 0.2 % Neut # (Auto) 8.48 H (1.40-6.50) K/uL Lymph # (Auto) 0.81 L (1.20-3.40) K/uL [place] # (Auto) 0.62 H (0.11-0.59) K/uL Eos # (Auto) 0.02 (0.00-0.50) K/uL Baso # (Auto) 0.02 (0.00-0.20) K/uL Immature Gran # (Auto) 0.03 (0.01-0.20) K/uL Dohle Bodies Sodium 135 L (136-145) mmol/L Potassium 3.4 L (3.5-5.1) mmol/L Chloride 105 (98-107) mmol/L Carbon Dioxide 24 (21-32) mmol/L Anion Gap 6 (3-11) BUN 18 (6-23) mg/dl Creatinine 1.26 (0.6-1.4) mg/dl Est Cr Clr Drug Dosing 77.1 ml/min Est GFR ( Amer) 75.0 ml/min Est GFR (Non-Af Amer) 64.7 ml/min BUN/Creatinine Ratio 14.3 (10-20) Glucose 155 H (70-99(Fasting)) mg/dl Calcium 8.3 L (8.6-10.3) mg/dl Magnesium 1.8 (1.7-2.4) mg/dl Total Bilirubin 4.5 H (0.2-1.0) mg/dl Direct Bilirubin 2.4 H (0-0.2) mg/dl AST 115 H (13-39) U/L ALT 233 H (7-52) U/L Alkaline Phosphatase 109 H (34-104) U/L Troponin I High Sens 6.4 (0-20) pg/ml Total Protein 6.4 (6.0-8.3) gm/dl Albumin 4.0 (3.4-5.0) gm/dl Lipase (11-82) U/L TSH 0.655 (0.300-4.500) uIu/ml Hepatitis A IgM Ab Pending Hep Bs Antigen Pending Hep Bs Ag Confirmation Pending Hep B Core IgM Ab Pending Hepatitis C Ab (EIA) Pending 05/11/23 05/11/23 05/11/23 Range/Units 16:03 16:03 16:03 WBC 16.61 H (4.8-10.8) K/ul RBC 5.13 (4.70-6.10) M/uL Hgb 15.7 (14.0-18.0) g/dl Hct 43.3 (42.0-52.0) % MCV 84.4 (80.0-100.0) fL MCH 30.6 (25.0-34.0) pg MCHC 36.3 H (32.0-36.0) g/dL RDW Std Deviation 39.1 (36.4-46.3) fL RDW Coeff of Javier 12.7 (11.5-14.5) % Plt Count 208 (130-400) K/uL MPV 8.8 L (9.4-12.4) fL Immature Gran % (Auto) 0.4 % Neut % (Auto) 91.9 % Lymph % (Auto) 3.7 % [place] % (Auto) 3.8 % Eos % (Auto) 0.0 % Baso % (Auto) 0.2 % Neut # (Auto) 15.27 H (1.40-6.50) K/uL Lymph # (Auto) 0.62 L (1.20-3.40) K/uL [place] # (Auto) 0.63 H (0.11-0.59) K/uL Eos # (Auto) 0.00 (0.00-0.50) K/uL Baso # (Auto) 0.03 (0.00-0.20) K/uL Immature Gran # (Auto) 0.06 (0.01-0.20) K/uL Dohle Bodies 1+ Sodium 136 (136-145) mmol/L Potassium 3.6 (3.5-5.1) mmol/L Chloride 103 (98-107) mmol/L Carbon Dioxide 23 (21-32) mmol/L Anion Gap 10 (3-11) BUN 20 (6-23) mg/dl Creatinine 1.38 (0.6-1.4) mg/dl Est Cr Clr Drug Dosing 70.4 ml/min Est GFR ( Amer) 67.2 ml/min Est GFR (Non-Af Amer) 58.0 ml/min BUN/Creatinine Ratio 14.5 (10-20) Glucose 150 H (70-99(Fasting)) mg/dl Calcium 8.7 (8.6-10.3) mg/dl Magnesium (1.7-2.4) mg/dl Total Bilirubin 3.9 H (0.2-1.0) mg/dl Direct Bilirubin 2.0 H (0-0.2) mg/dl AST 183 H (13-39) U/L ALT 284 H (7-52) U/L Alkaline Phosphatase 130 H (34-104) U/L Troponin I High Sens 6.8 (0-20) pg/ml Total Protein 7.2 (6.0-8.3) gm/dl Albumin 4.4 (3.4-5.0) gm/dl Lipase 5 L (11-82) U/L TSH (0.300-4.500) uIu/ml Hepatitis A IgM Ab Hep Bs Antigen Hep Bs Ag Confirmation Hep B Core IgM Ab Hepatitis C Ab (EIA)
[2023-05-12] MEDS: ONDANSETRON INJ 2 MG/ML 2 ML VIAL IV PRN (09:19)
[2023-05-12] MEDS: POTASSIUM CHLORIDE / WTR 10 MEQ/100 ML PLCT IV SCH ×2 (09:19→10:18)
[2023-05-12] MEDS: CIPROFLOXACIN / D5W 400 MG/200 ML BAG IV SCH ×2 (11:51→22:25)
[2023-05-12] MEDS: metroNIDAZOLE 500 MG/100 ML BAG IV SCH ×2 (12:19→18:27)
--- NOTE | 2023-05-12 12:29 | Electrocardiogram Report ---
Test Reason : Blood Pressure : / mmHG Vent. Rate : 082 BPM Atrial Rate : 082 BPM P-R Int : 186 ms QRS Dur : 088 ms QT Int : 392 ms P-R-T Axes : 045 005 036 degrees QTc Int : 457 ms Normal sinus rhythm Nonspecific ST abnormality Abnormal ECG Confirmed by Vaughn Peter ([id number]) on 05/12/2023 12:29:31 PM Referred By: REFERRED SELF Confirmed By:Kavon Peter
--- NOTE | 2023-05-12 12:37 | Anesthesiology Consultation ---
Date of Service May 12, 2023 Assessment & Plan Chart Review Chart Review: Acceptable Risk for Surgery and Patient NOT seen in Pre Admission Testing Consults Requested none History Surgery Operation Date: 05/12/23 07:00 Proposed Procedures p Endoscopic Retrograde Cholangiopancreato - Valentina Marquez DO s Endoscopic Ultrasonography Upper - Valentina Marquez DO Height/Weight Height: 5 ft 8 in Weight: 98.5 kg Allergies Allergy/AdvReac Type Severity Reaction Status Date / Time bacitracin Allergy Intermediate ITCHING, Verified 05/11/23 19:30 SEEPING RASH neomycin Allergy Intermediate ITCHING, Verified 05/11/23 19:30 SEEPING RASH Penicillins Allergy Intermediate HIVES Verified 05/11/23 19:30 polymyxin B Allergy Intermediate ITCHING, Verified 05/11/23 19:30 SEEPING RASH quetiapine [From Seroquel] Allergy Intermediate Unknown Verified 05/11/23 19:30 ketamine AdvReac Severe VIOLENT Verified 05/11/23 19:30 BEHAVOIR trazodone AdvReac Severe CHEST Verified 05/11/23 19:30 HEAVINESS Medications Home Medications Medication Instructions Recorded Confirmed Last Taken eszopiclone 3 mg tablet 3 mg PO HS 05/11/23 05/11/23 Unknown fluticasone propionate 230 1 puff inhalation BID 05/11/23 05/11/23 Unknown mcg-salmeterol 21 mcg/actuation HFA inhaler (Advair HFA) lisinopril 2.5 mg tablet 2.5 mg PO QAM 05/11/23 05/11/23 Unknown mupirocin 2 % topical ointment 1 applic topical BID PRN .. 05/11/23 05/11/23 Unknown pantoprazole 40 mg tablet,delayed 40 mg PO QAM 05/11/23 05/11/23 Unknown release Active Medications Generic Name Dose Route Start Last Admin Trade Name Freq PRN Reason Stop Dose Admin Eszopiclone 3 mg 05/12/23 00:53 05/12/23 01:49 Eszopiclone 1 Mg Tab PO 06/11/23 00:52 3 mg HS KEVIN Administration Fluticasone/Vilanterol 1 puffs 05/12/23 01:15 05/12/23 01:53 Fluticasone/Vilanterol 200/25mcg 14 Puffs/Inhaler INH 06/11/23 01:14 Not Given DAILY KEVIN Hydromorphone HCl 0.5 mg 05/12/23 00:53 05/12/23 09:23 Hydromorphone Inj 0.5 Mg/0.5 Ml Syr IV 05/26/23 00:52 0.5 mg Q3H PRN Administration Pain Dextrose/Sodium Chloride 1,000 mls @ 125 mls/hr 05/12/23 00:53 05/12/23 12:19 D5w And 1/2nss IV 06/11/23 00:52 0 mls/hr .Q8H KEVIN Infusion Famotidine 20 mg/ Syringe 5 mls @ 2.5 mls/min 05/12/23 00:53 05/12/23 07:20 IV 06/11/23 00:52 2.5 mls/min BID KEVIN Administration Ciprofloxacin 400 mg in 200 mls @ 100 mls/hr 05/12/23 11:15 05/12/23 11:51 Cipro / D5w IV 05/22/23 11:14 100 mls/hr Q12H KEVIN Administration Protocol Metronidazole 500 mg in 100 mls @ 100 mls/hr 05/12/23 11:15 05/12/23 12:19 Flagyl IV 05/22/23 11:14 100 mls/hr Q8H KEVIN Administration Protocol Ondansetron HCl 4 mg 05/12/23 00:53 05/12/23 09:19 Ondansetron Inj 2 Mg/Ml 2 Ml Vial IV 06/11/23 00:52 4 mg Q6H PRN Administration Nausea Pantoprazole Sodium 40 mg 05/12/23 09:00 05/12/23 07:20 Pantoprazole 40 Mg Tab PO 06/11/23 08:59 40 mg QAM KEVIN Administration NPO Date Last Intake of Fluids: 05/12/23 Time Last Intake of Fluids: 10:30 Last Intake of Fluids Comment: water Date Last Intake of Solids: 05/11/23 Time Last Intake of Solids: 22:30 Past Medical History Medical History Anxiety BPH (benign prostatic hyperplasia) Cardiac murmur A CHILD GERD (gastroesophageal reflux disease) Hyperlipidemia Idiopathic insomnia Migraine Moderate obstructive sleep apnea Per 07/25/21 Sleep Disoder note- attempting to get patient set up with BiPAP- could not tolerate CPAP Multiple thyroid nodules Osteoarthritis NECK (NORMAL ROM), BACK PTSD (post-traumatic stress disorder) SEVERE Tourette disease Past Family History Family History Brother Stroke Diabetes Myocardial infarction Father Alzheimer disease Parkinson disease Stroke Mother Brain cancer Sister High cholesterol Grandmother (Maternal) No problems noted. Grandfather (Maternal) No problems noted. Grandmother (Paternal) Diabetes Alzheimer disease Parkinson disease Grandfather (Paternal) Colorectal cancer Prostate cancer Diabetes Parkinson disease Family/Other Tourette syndrome Past Surgical History Surgical History H/O left inguinal hernia repair H/O rotator cuff surgery L History of anesthesia reaction VERY VIOLENT WITH KETAMINE History of cardiac cath 2019 [facility]. Mild nonobstructive CAD. History of colonoscopy History of esophagogastroduodenoscopy (EGD) S/P ear surgery L EARDRUM REPAIR S/P thyroid biopsy Social History Smoking Status: Never smoker Do You Dip or Chew Tobacco: No Hx Alcohol Use: No Hx Substance Use: No substance use type: does not use Physical Exam Vital Signs Last Vital Signs Temp 36.8 C 05/12/23 12:29 Pulse 88 05/12/23 12:29 Resp 20 05/12/23 12:29 BP 117/84 05/12/23 12:29 Pulse Ox 97 05/12/23 12:29 O2 Del Method Room Air 05/12/23 12:29 Testing Laboratory Results 05/12/23 04:38 05/12/23 04:38 Electrocardiogram Date: 05/12/23 Normal sinus rhythm When compared with ECG of 11-MAY-2023 21:21, (unconfirmed) Minimal criteria for Inferior infarct are no longer Present Nonspecific T wave abnormality now evident in Anterior leads Confirmed by Vuaghn Peter ([id number]) on 05/12/2023 12:40:15 PM Cardiac Catheterization Date: 07/19/19 CAD Presenation: Stable angina Anginal Classification: CCS II Heart Failure: No Stress Studies Past 6 Months: No Coronary Anatomy Dominant: Right Left Main (% Stenosis): Normal LAD (% Stenosis): Proximal (10%) and Mid (20%) D1 (% Stenosis): Normal D2 (% Stenosis): Normal D3 (% Stenosis): Normal Circumflex (% Stenosis): Ostial (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
--- NOTE | 2023-05-12 12:40 | Electrocardiogram Report ---
Test Reason : Blood Pressure : / mmHG Vent. Rate : 088 BPM Atrial Rate : 088 BPM P-R Int : 164 ms QRS Dur : 088 ms QT Int : 356 ms P-R-T Axes : 058 040 062 degrees QTc Int : 430 ms Normal sinus rhythm When compared with ECG of 11-MAY-2023 21:21, (unconfirmed) Minimal criteria for Inferior infarct are no longer Present Nonspecific T wave abnormality now evident in Anterior leads Confirmed by Vaughn Peter ([id number]) on 05/12/2023 12:40:15 PM Referred By: REFERRED SELF Confirmed By:Kavon Peter
[2023-05-12] MEDS ORDERED: fentaNYL citrate PF 100 MCG/2 ML VIAL ONE (12:57)
[2023-05-12] MEDS ORDERED: DEXAMETHASONE SOD INJ 4 MG/ML VIAL ONE (12:57)
[2023-05-12] MEDS ORDERED: PROPOFOL IV EMULSION 10 MG/ML 20 ML VIAL IV ONE (12:57)
[2023-05-12] MEDS ORDERED: ATROPINE SULFATE 0.1 MG/ML 10ML SYR IV PRN (12:57)
[2023-05-12] MEDS ORDERED: ONDANSETRON INJ 2 MG/ML 2 ML VIAL ONE (12:57)
[2023-05-12] MEDS ORDERED: ePHEDrine sulfate 50 MG/ML AMP IV PRN (12:57)
[2023-05-12] MEDS ORDERED: LIDOCAINE 2% 2 ML VIAL/AMP(20MG/ML) INFIL ONE (12:57)
[2023-05-12] MEDS ORDERED: ONDANSETRON INJ 2 MG/ML 2 ML VIAL IV PRN (12:57)
[2023-05-12] MEDS ORDERED: MIDAZOLAM HCL 1 MG/ML 2ML VIAL ONE (12:57)
[2023-05-12] MEDS ORDERED: fentaNYL citrate PF 100 MCG/2 ML VIAL IV PRN (12:57)
[2023-05-12] MEDS ORDERED: ROCURONIUM BROMIDE 10 MG/ML 5 ML VIAL IV ONE (12:57)
[2023-05-12] MEDS ORDERED: PROMETHAZINE HCL 12.5 MG in SODIUM CHLORIDE 0.9% 50 ML IV PRN ×2 (12:57→16:38)
--- NOTE | 2023-05-12 13:03 | History & Physical Bridge Note ---
Date of Service May 12, 2023 History & Physical Bridge Note I have examined the patient, reviewed the History & Physical and in the interval since the performance of the History & Physical I have noted the following changes of clinical significance: no changes noted. The patient has a history of nausea, vomitting, abdominal pain and a new elevation of his liver enzymes. We are planning for EGD with EUS and possible ERCP or liver biopsy. We have discussed the risks to include bleeding, infection, perforation, pain, pancreatitis, and failed biliary cannulation.
[2023-05-12] MEDS ORDERED: DexMEDEtomidine HCL IV 100 MCG/ML VIAL IV ONE (13:09)
[2023-05-12] MEDS ORDERED: INDOMETHACIN 50 MG SUPP PR ONE (13:13)
--- NOTE | 2023-05-12 13:34 | GI REPORT ---
Patient Name: Pito Aguilera Procedure Date: 05/12/2023 12:52 PM Date of : 1970 Admit Type: Inpatient Age: 52 Gender: Male Attending MD: Valentina Marquez DO, Procedure: Upper GI endoscopy Providers: Valentina Marquez DO Referring MD: Leyda Rivera Md Indications: Epigastric abdominal pain Medicines: General Anesthesia Complications: No immediate complications. Estimated blood loss: Minimal. Estimated Blood Loss: Estimated blood loss was minimal. Procedure: Pre-Anesthesia Assessment: - Prior to the procedure, a History and Physical was performed, and patient medications, allergies and sensitivities were reviewed. The patient's tolerance of previous anesthesia was reviewed. - The risks and benefits of the procedure and the sedation options and risks were discussed with the patient. All questions were answered and informed consent was obtained. - Patient identification and proposed procedure were verified prior to the procedure by the physician, the nurse and the railcar switchman. The procedure was verified in the procedure room. - Pre-procedure physical examination revealed no contraindications to sedation. - ASA Grade Assessment: II - A patient with mild systemic disease. - After reviewing the risks and benefits, the patient was deemed in satisfactory condition to undergo the procedure. - The anesthesia plan was to use general anesthesia. - Immediately prior to administration of medications, the patient was re-assessed for adequacy to receive sedatives. - The heart rate, respiratory rate, oxygen saturations, blood pressure, adequacy of pulmonary ventilation, and response to care were monitored throughout the procedure. - The physical status of the patient was re-assessed after the procedure. After obtaining informed consent, the endoscope was passed under direct vision. Throughout the procedure, the patient's blood pressure, pulse, and oxygen saturations were monitored continuously. The Scope was introduced through the mouth, and advanced to the third part of duodenum. The upper GI endoscopy was accomplished without difficulty. The patient tolerated the procedure well. Findings: The examined esophagus was normal. The Z-line was regular and was found 38 cm from the incisors. The entire examined stomach was normal. The examined duodenum was normal. Impression: - Normal esophagus. - Z-line regular, 38 cm from the incisors. - Normal stomach. - Normal examined duodenum. - No specimens collected. Recommendation: - Perform an upper endoscopic ultrasound (UEUS) today. Valentina Marquez D.O. Valentina Marquez, DO 05/12/2023 1:33:52 PM This report has been signed electronically. Note Initiated On: 05/12/2023 12:52 PM Number of Addenda: 0 I attest to the content of the Intraoperative Record and orders documented therein, exceptions below {[id number]}
--- NOTE | 2023-05-12 13:46 | GI REPORT ---
Patient Name: Pito Aguilera Procedure Date: 05/12/2023 12:52 PM Date of : 1970 Admit Type: Inpatient Age: 52 Gender: Male Attending MD: Valentina Marquez DO, Procedure: Upper EUS Providers: Valentina Marquez DO Referring MD: Referred Self Indications: Elevated liver enzymes, Suspected choledocholithiasis Medicines: General Anesthesia Complications: No immediate complications. Estimated blood loss: Minimal. Estimated Blood Loss: Estimated blood loss was minimal. Procedure: Pre-Anesthesia Assessment: - Prior to the procedure, a History and Physical was performed, and patient medications, allergies and sensitivities were reviewed. The patient's tolerance of previous anesthesia was reviewed. - The risks and benefits of the procedure and the sedation options and risks were discussed with the patient. All questions were answered and informed consent was obtained. - Patient identification and proposed procedure were verified prior to the procedure by the physician, the nurse and the fashion intern. The procedure was verified in the procedure room. - Pre-procedure physical examination revealed no contraindications to sedation. - ASA Grade Assessment: II - A patient with mild systemic disease. - After reviewing the risks and benefits, the patient was deemed in satisfactory condition to undergo the procedure. - The anesthesia plan was to use general anesthesia. - Immediately prior to administration of medications, the patient was re-assessed for adequacy to receive sedatives. - The heart rate, respiratory rate, oxygen saturations, blood pressure, adequacy of pulmonary ventilation, and response to care were monitored throughout the procedure. - The physical status of the patient was re-assessed after the procedure. After obtaining informed consent, the endoscope was passed under direct vision. Throughout the procedure, the patient's blood pressure, pulse, and oxygen saturations were monitored continuously. The Endosonoscope was introduced through the mouth, and advanced to the second part of duodenum. The upper EUS was accomplished without difficulty. The patient tolerated the procedure well. Findings: ENDOSONOGRAPHIC FINDING: : There was dilation in the common bile duct which measured up to 8 mm. Two stones were visualized endosonographically in the common bile duct. They were hyperechoic and characterized by shadowing. Multiple stones were visualized endosonographically in the gallbladder. They were hyperechoic. Moderate hyperechoic material consistent with sludge was visualized endosonographically in the gallbladder. There was abnormal echogenicity in the visualized portion of the liver. This area was hyperechoic. There was no sign of significant endosonographic abnormality in the entire pancreas. The pancreatic duct measured up to 2 mm in diameter. No masses, no cysts, no calcifications, the pancreatic duct was thin in caliber. No lymphadenopathy seen. There was no sign of significant endosonographic abnormality in the left adrenal gland. No adrenal gland enlargement was identified. Impression: - There was dilation in the common bile duct which measured up to 8 mm. - Two stones were visualized endosonographically in the common bile duct. - Multiple stones were visualized endosonographically in the gallbladder. - Hyperechoic material consistent with sludge was visualized endosonographically in the gallbladder. - There was abnormal echogenicity in the visualized portion of the liver. This was hyperechoic. Tissue has not been obtained. However, the endosonographic appearance is consistent with fatty infiltration. - There was no sign of significant pathology in the entire pancreas. - Endosonographic images of the left adrenal gland were unremarkable. - No specimens collected. Recommendation: - Perform an ERCP today. Valentina Marquez D.O. Valentina Marquez DO 05/12/2023 1:46:17 PM This report has been signed electronically. Note Initiated On: 05/12/2023 12:52 PM Number of Addenda: 0 I attest to the content of the Intraoperative Record and orders documented therein, exceptions below {[id number]}
--- NOTE | 2023-05-12 14:18 | Post Operative Brief Note ---
Immediate Post Op Note v1 Date of Surgery May 12, 2023 Pre & Post Diagnosis Operation Date: 05/12/23 07:00 Pre-Op Diagnosis: ABDOMINAL PAIN, ELEVATED LFT, CHEST PAIN Post-Op Diagnosis: common bile duct stones I identified the patient and participated in the time-out.: Yes Procedure Operation Date: 05/12/23 07:00 Actual Procedures p Esophagogastroduodenoscopy - Valentina Marquez DO s Endoscopic Ultrasonography Upper - Valentina Marquez DO p Endoscopic Retrograde Cholangiopancreato with spincterotomy, balloon sweep, stent placement - Valentina Marquez DO Surgeon Valentina Marquez, Drug Clerk none Estimated Blood Loss 0 Findings Consistent with Post-Op Diagnosis
--- NOTE | 2023-05-12 14:18 | GI REPORT ---
Patient Name: Pito Aguilera Procedure Date: 05/12/2023 12:53 PM Date of : 1970 Admit Type: Inpatient Age: 52 Gender: Male Attending MD: Valentina Marquez DO, Procedure: ERCP Providers: Valentina Marquez DO Referring MD: Leyda Rivera Md Indications: Abdominal pain of suspected biliary origin, Bile duct stone on Ultrasound, Elevated liver enzymes Medicines: General Anesthesia Complications: No immediate complications. Estimated blood loss: Minimal. Estimated Blood Loss: Estimated blood loss was minimal. Procedure: Pre-Anesthesia Assessment: - Prior to the procedure, a History and Physical was performed, and patient medications, allergies and sensitivities were reviewed. The patient's tolerance of previous anesthesia was reviewed. - The risks and benefits of the procedure and the sedation options and risks were discussed with the patient. All questions were answered and informed consent was obtained. - Patient identification and proposed procedure were verified prior to the procedure by the physician, the nurse and the import/export analyst. The procedure was verified in the procedure room. - Pre-procedure physical examination revealed no contraindications to sedation. - ASA Grade Assessment: II - A patient with mild systemic disease. - After reviewing the risks and benefits, the patient was deemed in satisfactory condition to undergo the procedure. - The anesthesia plan was to use general anesthesia. - Immediately prior to administration of medications, the patient was re-assessed for adequacy to receive sedatives. - The heart rate, respiratory rate, oxygen saturations, blood pressure, adequacy of pulmonary ventilation, and response to care were monitored throughout the procedure. - The physical status of the patient was re-assessed after the procedure. After obtaining informed consent, the scope was passed under direct vision. Throughout the procedure, the patient's blood pressure, pulse, and oxygen saturations were monitored continuously. The Duodenoscope was introduced through the mouth, and advanced to the duodenum and used to cannulate the bile duct. The ERCP was accomplished without difficulty. The patient tolerated the procedure well. Findings: The car shifter film was normal. The esophagus was successfully intubated under direct vision without detailed examination of the pharynx, larynx, and associated structures, and upper GI tract. The upper GI tract was grossly normal. The major papilla was on the rim of a large and multi-cavitary diverticulum. The major papilla was congested. The bile duct was deeply cannulated with the short-nosed traction sphincterotome and 0.035 in Acrobat 2 guidewire (PD not injected or cannulated). Contrast was injected. I personally interpreted the bile duct images. Contrast extended to the hepatic ducts. The lower third of the main bile duct contained filling defect(s) thought to be a stone and sludge. The main bile duct was moderately dilated, the cystic duct and gallbladder did not fill with contrast. The largest diameter was 8 mm. Biliary sphincterotomy was made with a Fusion OMNI sphincterotome using ERBE electrocautery. There was no post-sphincterotomy bleeding. To discover objects, the biliary tree was swept with a 12 mm balloon starting at the bifurcation. Sludge was swept from the duct. A few darkly pigmented stones were removed. No stones remained on a final occlusion cholangiogram. One 10 Fr by 8 cm biliary stent with a single external flap and a single internal flap was placed 8 cm into the common bile duct. Bile flowed through the stent. The stent was in good position. The endoscope was withdrawn from the patient. Indomethacin 100 mg was given via suppository to decrease the risk of post-ERCP pancreatitis (PEP). Impression: - The major papilla was on the rim of a diverticulum. - The major papilla appeared congested. - Choledocholithiasis was found. Complete removal was accomplished by biliary sphincterotomy and balloon extraction. - One biliary stent was placed into the common bile duct. - Indomethacin given to decrease risk of post-ERCP pancreatitis. Recommendation: - Return patient to [facility] for ongoing care. - Clear liquid diet today. - Use broad spectrum antibiotics for 10 days. - Refer to a surgeon to discuss cholecystectomy. - Repeat ERCP in 6 weeks to remove stent. Valentina Marquez D.O. Valentina Marquez DO 05/12/2023 2:17:38 PM This report has been signed electronically. Note Initiated On: 05/12/2023 12:53 PM Number of Addenda: 0 I attest to the content of the Intraoperative Record and orders documented therein, exceptions below {[id number]}
--- NOTE | 2023-05-12 14:20 | Communication Note ---
Date of Service: May 12, 2023 The patient underwent an EUS, upper endoscopy and ultimately ERCP. He was found to have evidence of choledocholithiasis. This was treated with a biliary sphincterotomy, gallstone extraction and biliary stent placement. Recommendations General surgery consultation to discuss timing of cholecystectomy Repeat ERCP in 6 weeks for stent removal Avoid use of nonsteroidals for 1 week please Antibiotic coverage for total of 10 days Continue IV hydration overnight, patient may have a clear liquid diet.
--- NOTE | 2023-05-12 14:39 | Anesthesiology Progress Note ---
Date of Service May 12, 2023 Anesthesia Post Procedure Vital Signs Vital Signs: Temp Pulse Pulse Pulse Resp BP BP 05/12/23 14:26 36.9 C 94 H 16 142/76 H 05/12/23 12:29 36.8 C 88 20 117/84 05/12/23 10:56 37.6 C H 95 H 18 133/79 05/12/23 07:00 89 05/12/23 07:15 05/12/23 07:21 37.4 C 92 H 14 120/76 05/12/23 03:09 37.7 C H 94 H 16 131/69 05/12/23 01:28 112 H 05/12/23 00:54 37.8 C H 103 H 12 124/72 05/11/23 23:00 85 20 129/77 05/11/23 20:35 82 20 129/77 05/11/23 18:14 85 18 105/68 05/11/23 16:31 104 H 05/11/23 15:52 36.8 C 104 H 20 111/82 Pulse Ox O2 Del Method O2 Flow Rate 05/12/23 14:26 97 Oxymask 6 05/12/23 12:29 97 Room Air 05/12/23 10:56 95 Room Air 05/12/23 07:00 05/12/23 07:15 Room Air 05/12/23 07:21 94 Room Air 05/12/23 03:09 94 Room Air 05/12/23 01:28 05/12/23 00:54 93 Room Air 05/11/23 23:00 98 Room Air 05/11/23 20:35 94 Room Air 05/11/23 18:14 98 Room Air 05/11/23 16:31 05/11/23 15:52 93 Room Air Pain Intensity Abdomen: Pain Intensity: 7 Transfer of Care Handoff Completed per policy Notes Mental Status: alert / awake / arousable and participated in evaluation Patient Amnestic to Procedure: Yes Nausea / Vomiting: adequately controlled Pain: adequately controlled Airway Patency, RR, SpO2: stable & adequate BP & HR: stable & adequate Hydration State: stable & adequate Anesthetic Complications: no major complications apparent and Pt Satisfied with anesthetic care
--- NOTE | 2023-05-12 15:03 | Hospitalist Progress Note ---
Date of Service May 12, 2023 Assessment & Plan (1) Abdominal pain: Plan: 52-year-old man with past medical significant for hyperlipidemia, hypothyroidism, sleep apnea, chronic kidney disease stage II, GERD, generalized osteoarthritis, Tourette's syndrome, chronic neck pain, PTSD, ADD, presents with worsening of his chronic abdominal pain w/ radiation to rt shoulder a/w nausea and dry heaves. Pt reports low appetite but no swallowing problem and reports losing 30 lbs in last 2 months. Pt reports getting shiga toxin in Apr. 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 Patient reports multiple loose stools per day at home. Says lost 30 pounds last 2 months; historical weight in our system seems to be stable arond 99Kg Chest and abdominal x-ray with no acute finding. DVT ultrasound with trace nonspecific pericholecystic fluid, no cholelithiasis or gallbladder wall thickening noted. No biliary ductal dilatation noted. CT of the abdomen and pelvis with no acute findings. Leukocytosis and mild fever at presentation. GI evaluated, recommends EUS plus minus ERCP/hepatitis panel, HUA, AMA, ASMA, HIV screening/antibiotic with biliary coverage. Follow-up for POZO with mild fibrosis as outpatient. EGD 05/12 normal exam. ERCP 05/12major papilla appeared congested, choledocholithiasis was found -> complete removal was accomplished by biliary sphincterotomy and balloon extraction/1 biliary stent was placed into the common bile duct. Per GI, clear liquid diet today, broad-spectrum antibiotic for 10 days, surgical referral to discuss cholecystectomy, ERCP in 6 weeks to remove the stent. Hepatitis panel pending, HIV screen sent Stool studies, patient with no further bowel movement while in the hospital. Pain control, IV Pepcid. IVF and CLD Labs in AM. Monitor replete electrolytes. We will avoid NSAIDs/blood thinner next 7 days from 05/12 given ERCP/sphincterotomy Gen Sx consult, await recs. c/w cipro and metron 05/12. Chest pain: Says coming from abdomen. Troponin x3 negative. EKG with no acute ST or T changes. Other chronic medical conditions: History of hypothyroidism, and sleep apnea, GERD on Protonix, insomnia on Lunesta --- continue with/resume home meds as and when able. DVT prophylaxis SCDs for now Disposition med/telemetry Full code Admission and Anticipated Discharge Date Admission Date: May 11, 2023 Subjective Patient was seen and examined at bedside. Patient was lying in bed, on room air, appears to be in mild distress due to pain. Patient reports abdominal pain with minimal improvement, recently received Dilaudid like half an hour prior to my exam at bedside. Patient reports some nausea, denies vomiting. Patient is n.p.o. for endoscopy later in the evening. Resume diet as per GI recommendation. Patient agreeable to antibiotic. Patient agreeable to HIV test. Appreciate GI recommendations. Physical Exam Physical Exam: GENERAL: Alert and oriented x3. ?? mild distress due to abd pain, on RA. HEENT: No pallor, no icterus. Pupils equal, round and reactive to light. Oral mucosa moist. NECK: No JVD, no neck masses. HEART: S1 and S2 heard. Regular rate and rhythm. No murmur, no gallop. RESPIRATORY SYSTEM: Normal AP diameter. No accessory muscle use. No wheezing, no crackles. ABDOMEN: Soft, bowel sounds present, no distention. Epigastric, RUQ and lower quadrants tender, no rebound tender. CENTRAL NERVOUS SYSTEM: No facial droop. Speech is clear. Obeys simple commands. Moves extremities. EXTREMITIES: No edema, no erythema seen. Results & Data Results & Data Vital Signs (Past 12 Hours) Vital Signs Temp Pulse Pulse Pulse Resp BP Pulse Ox 05/12/23 14:40 90 18 135/75 95 05/12/23 14:30 94 H 20 122/74 98 05/12/23 14:26 36.9 C 94 H 16 142/76 H 97 05/12/23 12:29 36.8 C 88 20 117/84 97 05/12/23 10:56 37.6 C H 95 H 18 133/79 95 05/12/23 07:00 89 05/12/23 07:15 05/12/23 07:21 37.4 C 92 H 14 120/76 94 05/12/23 03:09 37.7 C H 94 H 16 131/69 94 O2 Del Method O2 Flow Rate 05/12/23 14:40 Oxymask 6 05/12/23 14:30 Oxymask 6 05/12/23 14:26 Oxymask 6 05/12/23 12:29 Room Air 05/12/23 10:56 Room Air 05/12/23 07:00 05/12/23 07:15 Room Air 05/12/23 07:21 Room Air 05/12/23 03:09 Room Air (1) Abdominal pain Abdominal location: epigastric Qualified Code(s): R10.13 - Epigastric pain
--- NOTE | 2023-05-12 16:06 | Surgery Consultation ---
Date of Consultation May 12, 2023 Assessment & Plan (1) Transaminitis: (2) Abdominal pain: (3) Choledocholithiasis: Plan 52 year-old male with 1 year history of intermittent epigastric/upper/RUQ abdominal pain presented to ED with increasing abdominal pain, jaundice, and dark urine. Labs showed leukocytosis of 16k and elevated t. bili and lfts. Imaging however unremarkable for acute cholecystitis or biliary obstruction. ERCP with + choledocholithiasis. Plan: Discussed with patient and ERCP findings of biliary obstruction and indication for cholecystectomy to prevent future episodes of biliary obstruction. Discussed procedure of laparoscopic cholecystectomy briefly and will determine timing of cholecystectomy either inpatient during this admission vs outpatient prior to biliary stent removal. Will discuss with attending Surgeon ,Dr. Somers. In meantime, continue IV abx, pain management, antiemetics as needed, IV fluids, and repeat am labs. Added liver profile and lipase to am labs. Okay for clear liquids and NPO after midnight Continue medical management K-pad for abdominal discomfort encouraged to ambulate to help with gas pains/cramping Discussed with Dr. Somers who agrees with above. I saw pt and agreed with above assessment and plan. 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 He notes chronic abd pain at least x 1 year. Upper abd, midline and RUQ. Intermittent. Severe. Radiates to his back. Has been to [facility] ER visits due to pain and believes he has had pancreatitis 2-3 times. Some nausea, vomiting. Decreased appetite. Chronic diarrhea, denies black or bloody stools. noted some scleral jaundice yesterday.. For about a week his urine has been darker. ER work-up included labs which showed leukocytosis of 16k, elevated t. bili and lfts. Imaging however unremarkable including ultrasound and ct scan of abdomen and pelvis. Underwent EGD with EUS and ERCP today and found to have choledocholithiasis. Our services consulted for discussion of cholecystectomy. He states he is still having abdominal pain but slightly better than when he came to ED. More cramping in lower abdomen right now and epigastrium. Urine still looks dark. Mild nausea. Allergies Allergy/AdvReac Type Severity Reaction Status Date / Time bacitracin Allergy Intermediate ITCHING, Verified 05/11/23 19:30 SEEPING RASH neomycin Allergy Intermediate ITCHING, Verified 05/11/23 19:30 SEEPING RASH Penicillins Allergy Intermediate HIVES Verified 05/11/23 19:30 polymyxin B Allergy Intermediate ITCHING, Verified 05/11/23 19:30 SEEPING RASH quetiapine [From Seroquel] Allergy Intermediate Unknown Verified 05/11/23 19:30 ketamine AdvReac Severe VIOLENT Verified 05/11/23 19:30 BEHAVOIR trazodone AdvReac Severe CHEST Verified 05/11/23 19:30 HEAVINESS Home Medications Medication Instructions Recorded Confirmed Type eszopiclone 3 mg tablet 3 mg PO HS 05/11/23 05/11/23 History fluticasone propionate 230 1 puff inhalation BID 05/11/23 05/11/23 History mcg-salmeterol 21 mcg/actuation HFA inhaler (Advair HFA) lisinopril 2.5 mg tablet 2.5 mg PO QAM 05/11/23 05/11/23 History mupirocin 2 % topical ointment 1 applic topical BID PRN .. 05/11/23 05/11/23 History pantoprazole 40 mg tablet,delayed 40 mg PO QAM 05/11/23 05/11/23 History release Patient History Medical History Anxiety BPH (benign prostatic hyperplasia) Cardiac murmur A CHILD GERD (gastroesophageal reflux disease) Hyperlipidemia Idiopathic insomnia Migraine Moderate obstructive sleep apnea Per 07/25/21 Sleep Disoder note- attempting to get patient set up with BiPAP- could not tolerate CPAP Multiple thyroid nodules Osteoarthritis NECK (NORMAL ROM), BACK PTSD (post-traumatic stress disorder) SEVERE Tourette disease Surgical History H/O left inguinal hernia repair H/O rotator cuff surgery L History of anesthesia reaction VERY VIOLENT WITH KETAMINE History of cardiac cath 2019 [facility]. Mild nonobstructive CAD. History of colonoscopy History of esophagogastroduodenoscopy (EGD) S/P ear surgery L EARDRUM REPAIR S/P thyroid biopsy Family History Brother Stroke Diabetes Myocardial infarction Father Alzheimer disease Parkinson disease Stroke Mother Brain cancer Sister High cholesterol Grandmother (Maternal) No problems noted. Grandfather (Maternal) No problems noted. Grandmother (Paternal) Diabetes Alzheimer disease Parkinson disease Grandfather (Paternal) Colorectal cancer Prostate cancer Diabetes Parkinson disease Family/Other Tourette syndrome Social History Smoking Status: Never smoker Second Hand Exposure: No; Do You Dip or Chew Tobacco: No; Hx Alcohol Use: No Hx Substance Use: No Preferred Language: Telugu Communication Ability: Effective Dope Mixer Required: No Beliefs That Will Affect Care: None Current Living Situation: Spouse Current Living Situation Comment: lives at home with Other Information That Helps Us Care for You: No Feels Safe at Home: Yes Safety Concerns: Feels Safe At This Time Assistive Devices: None Review of Systems Review of Systems: All systems reviewed & are unremarkable except as noted in HPI & below Physical Exam Constitutional: WD/WN, vitals as above cooperative and comfortable; no acute distress and not ill appearing Respiratory: normal respiratory effort, lungs clear to auscultation Cardiovascular: Rate/Rhythm: regular rate and regular rhythm Heart Sounds: normal S1, normal S2 and + murmur Gastrointestinal (Abdomen): Percussion/Palpation: + abdomen tender (RUQ on mild palpation, lower abdomen bilaterally) and abdomen soft; no guarding, abdomen not rigid and abdomen not firm Skin: no rashes, warm and dry + jaundice (scleral icterus, mild) Psychiatric: A+Ox3, euthymic affect Results & Data Vital Signs (Past 12 Hours) Vital Signs Temp Pulse Pulse Pulse Resp BP Pulse Ox 05/12/23 15:50 36.7 C 79 18 127/84 95 05/12/23 15:20 36.2 C L 80 12 151/84 H 98 05/12/23 15:30 79 14 137/88 98 05/12/23 15:10 83 12 134/68 98 05/12/23 15:00 85 12 140/75 98 05/12/23 14:40 90 18 135/75 95 05/12/23 14:50 89 20 136/80 97 05/12/23 14:30 94 H 20 122/74 98 05/12/23 14:26 36.9 C 94 H 16 142/76 H 97 05/12/23 12:29 36.8 C 88 20 117/84 97 05/12/23 10:56 37.6 C H 95 H 18 133/79 95 05/12/23 07:00 89 05/12/23 07:15 05/12/23 07:21 37.4 C 92 H 14 120/76 94 O2 Del Method O2 Flow Rate 05/12/23 15:50 Nasal Cannula 2 05/12/23 15:20 Nasal Cannula 2 05/12/23 15:30 Nasal Cannula 2 05/12/23 15:10 Nasal Cannula 2 05/12/23 15:00 Nasal Cannula 2 05/12/23 14:40 Oxymask 6 05/12/23 14:50 Room Air 05/12/23 14:30 Oxymask 6 05/12/23 14:26 Oxymask 6 05/12/23 12:29 Room Air 05/12/23 10:56 Room Air 05/12/23 07:00 05/12/23 07:15 Room Air 05/12/23 07:21 Room Air Diagnostic Findings ABDOMINAL ULTRASOUND, RIGHT UPPER QUADRANT HISTORY: Acute epigastric abdominal pain ro baljeet epigastric pain. COMPARISON: 10/23/2019 FINDINGS: Pancreas: The pancreas demonstrates a normal echotexture. Liver: 17.4 cm in length. Hepatic steatosis without hepatic mass identified. Gallbladder: Mild gallbladder distention with trace nonspecific pericholecystic fluid. No gallstones. Sonographic Geiger sign was unable to be assessed secondary to patient recently receiving pain medication. CBD: 0.5 cm. Right kidney: No hydronephrosis. IMPRESSION: 1. Trace nonspecific pericholecystic fluid. No cholelithiasis or gallbladder wall thickening. 2. Hepatomegaly with hepatic steatosis. 3. No biliary ductal dilation. Exam(s): CT ABDOMEN + PELVIS With Contrast IV Amt: 90 ml opti 320 EXAM: CT Abdomen and Pelvis With Intravenous Contrast CLINICAL HISTORY: Reason for exam: severe epigastric and lower abdominal pain, lft. TECHNIQUE: Axial computed tomography images of the abdomen and pelvis with intravenous contrast. CTDI is 27.47 mGy and DLP is 1381.63 mGy-cm. Automated exposure control was utilized for the study. A dose lowering technique was utilized adhering to the principles of ALARA. CONTRAST: Patient received 90 ml opti 320 of IV contrast COMPARISON: No relevant prior studies available. FINDINGS: Lung bases: Unremarkable. No mass. No consolidation. ABDOMEN: Liver: Fatty infiltration of the liver. Gallbladder and bile ducts: Unremarkable. No calcified stones. No ductal dilation. Pancreas: Unremarkable. No mass. No ductal dilation. Spleen: Unremarkable. No splenomegaly. Adrenals: Unremarkable. No mass. Kidneys and ureters: Unremarkable. No solid mass. No hydronephrosis. Stomach and bowel: Unremarkable. No obstruction. No mucosal thickening. PELVIS: Appendix: No findings to suggest acute appendicitis. Bladder: Unremarkable. No mass. Reproductive: Unremarkable as visualized. ABDOMEN and PELVIS: Intraperitoneal space: Unremarkable. No free air. No significant fluid collection. Bones/joints: No acute fracture. No dislocation. Soft tissues: Unremarkable. Vasculature: Unremarkable. No abdominal aortic aneurysm. Lymph nodes: Unremarkable. No enlarged lymph nodes. IMPRESSION: No acute findings in the abdomen or pelvis. (2) Abdominal pain Abdominal location: epigastric Qualified Code(s): R10.13 - Epigastric pain
[2023-05-12] MEDS ORDERED: oxyCODONE/ACETAMINOPHEN 5mg/325mg TAB PO PRN (16:38)
[2023-05-12 17:04] LABS: Appearance Urine Clear (Clear); Bacteria Urine Automated Negative (Negative); Blood Urine Negative (Negative); Cast Urine Automated 0 /lpf (0-5); Color Urine Dark Yellow; Epithelial Cell Urine Auto 0-5 /lpf (0-5); Glucose Urine UA Negative (Negative); Ketones Urine Negative (Negative); Leukocyte Esterase Urine Negative (Negative); Nitrite Urine Negative (Negative); Protein Urine Trace (Negative); RBC Urine Automated 0-4 /hpf (0-4); Specific Gravity Urine 1.014 (1.000-1.030); Urobilinogen Urine Negative (Negative); pH Urine 6.5 (4.5-7.5)
--- NOTE | 2023-05-12 17:04 | Fluoroscopy Report ---
[place] ERCP biliary ductal CLINICAL HISTORY: ERCP IN OR COMPARISON STUDY: 05/12/2023 FLUOROSCOPY TIME: 34 seconds. FLUOROSCOPY IMAGES: 7 EXPOSURE DOSE: Not given by the technologist mGy FINDINGS: Endoscope within the duodenum. Cannulation of the common bile duct with retrograde injectio n of contrast. Subsequent images demonstrate balloon sweep of the common bile duct with placement of a common bile duct stent which appears to be in satisfactory positioning. IMPRESSION: Fluoroscopic assistance as above. ACT 112: Negative or not required by law. Electronically signed by: Corey Wilson M.D. 05/12/2023 5:03 PM
[2023-05-12 17:11] LABS: Bilirubin Urine 1+ (Negative)
[2023-05-12] MEDS: ACETAMINOPHEN 325 MG TAB PO PRN (17:48)
[2023-05-12] MEDS: CALCIUM CARBONATE 500 MG CHEWABLE TAB PO PRN (17:50)
[2023-05-12] MEDS: MoRPHine SULFATE 2 MG/ML CARP IV PRN (20:44)
[2023-05-13] MEDS: metroNIDAZOLE 500 MG/100 ML BAG IV SCH ×3 (03:35→19:55)
[2023-05-13 04:37] LABS: Hematocrit (blood only) 42.9 % (42.0-52.0); Hemoglobin 15.3 g/dl (14.0-18.0); Mean Corpuscular Hemoglobin 30.3 pg (25.0-34.0); Mean Corpuscular Hgb Conc 35.7 g/dL (32.0-36.0); Mean Platelet Volume 9.1 fL (9.4-12.4); Platelet Count 189 K/uL (130-400); RDW Standard Deviation 40.2 fL (36.4-46.3); Red Blood Count 5.05 M/uL (4.70-6.10); White Blood Count 7.54 K/ul (4.8-10.8)
[2023-05-13] MEDS: SIMETHICONE 80 MG CHEW PO PRN ×3 (04:46→19:53)
[2023-05-13 04:54] LABS: BUN Creatinine Ratio 11.8 (10-20); Bilirubin Direct 0.8 mg/dl (0-0.2); Bilirubin,Total 1.8 mg/dl (0.2-1.0); Calcium 8.7 mg/dl (8.6-10.3); Creatinine Clr Calc Pharmacy 88.4 ml/min; Est GFR (African American) 88.4 ml/min; Est GFR (Non-African American) 76.2 ml/min; Magnesium 1.8 mg/dl (1.7-2.4); Phosphorus 2.1 mg/dl (2.5-4.9); Total Protein 6.8 gm/dl (6.0-8.3)
[2023-05-13] MEDS: D5W AND 1/2NSS 1,000 ML IV SCH ×2 (06:15→12:50)
[2023-05-13] MEDS: CALCIUM CARBONATE 500 MG CHEWABLE TAB PO PRN ×2 (06:19→13:35)
[2023-05-13] MEDS: MoRPHine SULFATE 2 MG/ML CARP IV PRN ×2 (06:32→13:35)
[2023-05-13] MEDS: ACETAMINOPHEN 325 MG TAB PO PRN (07:25)
[2023-05-13] MEDS: FAMOTIDINE 20 MG in SYRINGE 3 ML IV SCH ×2 (07:25→22:18)
[2023-05-13] MEDS: FLUTICASONE/VILANTEROL 200/25MCG 14 PUFFS/INHALER INH SCH (07:25)
[2023-05-13] MEDS: PANTOprazole 40 MG TAB PO SCH (07:25)
[2023-05-13] MEDS ORDERED: POTASSIUM PHOS 3 MMOL/1 ML INFUSION IV STA (08:59)
[2023-05-13] MEDS ORDERED: POTASSIUM PHOSPHATE 15 MMOL in SODIUM CHLORIDE 0.9% 250 ML IV ONE (09:30)
[2023-05-13 10:07] LABS: HBSAG NON-REACTIVE (NON-REACTIVE); Hepatitis A Antibody IgM NON-REACTIVE (NON-REACTIVE); Hepatitis B Core Antibody IgM NON-REACTIVE (NON-REACTIVE)
--- NOTE | 2023-05-13 10:59 | Surgery Progress Note ---
Date of Service May 13, 2023 Assessment & Plan (1) Choledocholithiasis: Plan: Assessment: Patient was admitted to the hospital for abdominal pain. Patient had a ERCP removal common bile duct stone with a stent placed. Patient doing better. Some abdominal pain in the epigastric area. No right upper quadrant pain. No nausea no vomiting no fevers. Normal WBC Plan, I recommend to do laparoscopy cholecystectomy outpatient setting. Give some time to cool down gallbladder. Full liquid low fat diet today. Patient can be discharged home if patient tolerates a liquid diet. Patient understood. He agreed with the plan. I will follow-up patient in my office in 2 weeks.[phone]. thanks. Discharge patient with p.o. antibiotic for 1 week. Admission and Anticipated Discharge Date Admission Date: May 11, 2023 Subjective F/U gallstone and ERCP removed CBD stone with stent placed. POD 1 pt feels better, some epigastric pain, no RUQ pain, no nausea, no vomiting , or fever. WBC normal, ( [id number] down to 1.5 from 4.5. Physical Exam Constitutional: WD/WN, vitals as above Eyes: PERRL, conjunctivae normal, anicteric sclerae Neck: trachea midline, no thyromegaly Respiratory: normal respiratory effort, lungs clear to auscultation Cardiovascular: RRR, no murmur, no edema Gastrointestinal (Abdomen): soft. mild tenderness at epigastric area, no rebound pain, no distend, BS + Musculoskeletal: no cyanosis or clubbing, extremities motor strength 5/5 Neurologic: patellar DTR's 2+ bilat, sensation intact Psychiatric: A+Ox3, euthymic affect Results & Data Vital Signs (Past 12 Hours) Vital Signs Temp Pulse Resp BP Pulse Ox O2 Del Method 05/13/23 08:00 Room Air 05/13/23 08:34 37.1 C 90 18 123/74 91 Room Air 05/13/23 03:00 36.5 C 73 18 118/70 95 Room Air 05/12/23 23:08 36.7 C 73 18 116/69 96 Room Air Laboratory Results Abnormal lab results 05/12/23 05/13/23 05/13/23 Range/Units Unknown 04:05 04:05 MPV 9.1 L (9.4-12.4) fL Chloride 108 H (98-107) mmol/L Glucose 174 H (70-99(Fasting)) mg/dl Phosphorus 2.1 L (2.5-4.9) mg/dl Total Bilirubin 1.8 H D (0.2-1.0) mg/dl Direct Bilirubin 0.8 H (0-0.2) mg/dl AST 97 H (13-39) U/L ALT 233 H (7-52) U/L Alkaline Phosphatase 113 H (34-104) U/L Urine Protein Trace H (Negative) Urine Bilirubin 1+ H (Negative) Diagnostic Findings ABDOMINAL ULTRASOUND, RIGHT UPPER QUADRANT HISTORY: Acute epigastric abdominal pain ro baljeet epigastric pain. COMPARISON: 10/23/2019 FINDINGS: Pancreas: The pancreas demonstrates a normal echotexture. Liver: 17.4 cm in length. Hepatic steatosis without hepatic mass identified. Gallbladder: Mild gallbladder distention with trace nonspecific pericholecystic fluid. No gallstones. Sonographic Geiger sign was unable to be assessed secondary to patient recently receiving pain medication. CBD: 0.5 cm. Right kidney: No hydronephrosis. IMPRESSION: 1. Trace nonspecific pericholecystic fluid. No cholelithiasis or gallbladder wall thickening. 2. Hepatomegaly with hepatic steatosis. 3. No biliary ductal dilation. Exam(s): CT ABDOMEN + PELVIS With Contrast IV Amt: 90 ml opti 320 EXAM: CT Abdomen and Pelvis With Intravenous Contrast CLINICAL HISTORY: Reason for exam: severe epigastric and lower abdominal pain, lft. TECHNIQUE: Axial computed tomography images of the abdomen and pelvis with intravenous contrast. CTDI is 27.47 mGy and DLP is 1381.63 mGy-cm. Automated exposure control was utilized for the study. A dose lowering technique was utilized adhering to the principles of ALARA. CONTRAST: Patient received 90 ml opti 320 of IV contrast COMPARISON: No relevant prior studies available. FINDINGS: Lung bases: Unremarkable. No mass. No consolidation. ABDOMEN: Liver: Fatty infiltration of the liver. Gallbladder and bile ducts: Unremarkable. No calcified stones. No ductal dilation. Pancreas: Unremarkable. No mass. No ductal dilation. Spleen: Unremarkable. No splenomegaly. Adrenals: Unremarkable. No mass. Kidneys and ureters: Unremarkable. No solid mass. No hydronephrosis. Stomach and bowel: Unremarkable. No obstruction. No mucosal thickening. PELVIS: Appendix: No findings to suggest acute appendicitis. Bladder: Unremarkable. No mass. Reproductive: Unremarkable as visualized. ABDOMEN and PELVIS: Intraperitoneal space: Unremarkable. No free air. No significant fluid collection. Bones/joints: No acute fracture. No dislocation. Soft tissues: Unremarkable. Vasculature: Unremarkable. No abdominal aortic aneurysm. Lymph nodes: Unremarkable. No enlarged lymph nodes. IMPRESSION: No acute findings in the abdomen or pelvis. Findings: ENDOSONOGRAPHIC FINDING: : There was dilation in the common bile duct which measured up to 8 mm. Two stones were visualized endosonographically in the common bile duct. They were hyperechoic and characterized by shadowing. Multiple stones were visualized endosonographically in the gallbladder. They were hyperechoic. Moderate hyperechoic material consistent with sludge was visualized endosonographically in the gallbladder. There was abnormal echogenicity in the visualized portion of the liver. This area was hyperechoic. There was no sign of significant endosonographic abnormality in the entire pancreas. The pancreatic duct measured up to 2 mm in diameter. No masses, no cysts, no calcifications, the pancreatic duct was thin in caliber. No lymphadenopathy seen. There was no sign of significant endosonographic abnormality in the left adrenal gland. No adrenal gland enlargement was identified. Impression: - There was dilation in the common bile duct which measured up to 8 mm. - Two stones were visualized endosonographically in the common bile duct. - Multiple stones were visualized endosonographically in the gallbladder. - Hyperechoic material consistent with sludge was visualized endosonographically in the gallbladder. - There was abnormal echogenicity in the visualized portion of the liver. This was hyperechoic. Tissue has not been obtained. However, the endosonographic appearance is consistent with fatty infiltration. - There was no sign of significant pathology in the entire pancreas. - Endosonographic images of the left adrenal gland were unremarkable. - No specimens collected.
[2023-05-13] MEDS: CIPROFLOXACIN / D5W 400 MG/200 ML BAG IV SCH ×2 (14:09→22:07)
--- NOTE | 2023-05-13 15:06 | Hospitalist Progress Note ---
Date of Service May 13, 2023 Assessment & Plan (1) Abdominal pain: Plan: 52-year-old man with past medical significant for hyperlipidemia, hypothyroidism, sleep apnea, chronic kidney disease stage II, GERD, generalized osteoarthritis, Tourette's syndrome, chronic neck pain, PTSD, ADD, presents with worsening of his chronic abdominal pain w/ radiation to rt shoulder a/w nausea and dry heaves. Pt reports low appetite but no swallowing problem and reports losing 30 lbs in last 2 months. Pt reports getting shiga toxin in Apr. 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 Patient reports multiple loose stools per day at home. Says lost 30 pounds last 2 months; historical weight in our system seems to be stable arond 99Kg Chest and abdominal x-ray with no acute finding. DVT ultrasound with trace nonspecific pericholecystic fluid, no cholelithiasis or gallbladder wall thickening noted. No biliary ductal dilatation noted. CT of the abdomen and pelvis with no acute findings. Leukocytosis and mild fever at presentation. GI evaluated, recommends EUS plus minus ERCP/hepatitis panel, HUA, AMA, ASMA, HIV screening/antibiotic with biliary coverage. Follow-up for POZO with mild fibrosis as outpatient. EGD 05/12 normal exam. US 05/12 - dilatation of CBD up to 8 mm, 2 stones in the CBD, multiple stones in the GB, sludge in the GB, fatty infiltration of the liver, pancreas fairly WNL. ERCP 05/12major papilla appeared congested, choledocholithiasis was found -> complete removal was accomplished by biliary sphincterotomy and balloon extraction/1 biliary stent was placed into the common bile duct. Per GI, broad-spectrum antibiotic for 10 days, surgical referral to discuss cholecystectomy, ERCP in 6 weeks to remove the stent. Hepatitis panel pending, HIV screen pending Stool studies not collected. Pain control, IV Pepcid. DC IVF and continue with [facility] Labs in AM. Monitor replete electrolytes. We will avoid NSAIDs/blood thinner next 7 days from 05/12 given ERCP/sphincterotomy Gen Sx consult, plan for outpatient cholecystectomy c/w cipro and metron 05/12. Patient still with some abdominal pain though improving. Complained of 1 loose bowel movement yesterday. Continue with low-fat diet. Chest pain: Says coming from abdomen. Troponin x3 negative. EKG with no acute ST or T changes. Other chronic medical conditions: History of hypothyroidism, and sleep apnea, GERD on Protonix, insomnia on Lunesta --- continue with/resume home meds as and when able. DVT prophylaxis SCDs for now Disposition med/telemetry. Full code Admission and Anticipated Discharge Date Admission Date: May 11, 2023 Subjective Patient was seen and examined at bedside. Patient was lying in bed, on room air, resting comfortably, not in any acute distress. Patient reports significant improvement in his abdominal pain. Patient denies any nausea or vomiting. Had 1 loose bowel movement yesterday per patient. Resumed diet as per surgery recommendation. Physical Exam Physical Exam: GENERAL: Alert and oriented x3. NAD, on RA. HEENT: No pallor, no icterus. Pupils equal, round and reactive to light. Oral mucosa moist. NECK: No JVD, no neck masses. HEART: S1 and S2 heard. Regular rate and rhythm. No murmur, no gallop. RESPIRATORY SYSTEM: Normal AP diameter. No accessory muscle use. No wheezing, no crackles. ABDOMEN: Soft, bowel sounds present, no distention. Nontender CENTRAL NERVOUS SYSTEM: No facial droop. Speech is clear. Obeys simple c ommands. Moves extremities. EXTREMITIES: No edema, no erythema seen. Results & Data Results & Data Vital Signs (Past 12 Hours) Vital Signs Temp Pulse Pulse Resp BP Pulse Ox O2 Del Method 05/13/23 07:00 80 05/13/23 12:05 37.1 C 71 18 135/83 90 Room Air 05/13/23 08:00 Room Air 05/13/23 08:34 37.1 C 90 18 123/74 91 Room Air (1) Abdominal pain Abdominal location: epigastric Qualified Code(s): R10.13 - Epigastric pain
[2023-05-13] MEDS: MoRPHine SULFATE 4 MG/ML 1 ML CARP\\VIAL IV PRN ×2 (16:23→22:15)
[2023-05-13] MEDS: ESZOPICLONE 1 MG TAB PO SCH (22:14)
[2023-05-13] MEDS: ONDANSETRON INJ 2 MG/ML 2 ML VIAL IV PRN (22:15)
[2023-05-14] MEDS: metroNIDAZOLE 500 MG/100 ML BAG IV SCH ×2 (03:55→13:56)
[2023-05-14] MEDS: MoRPHine SULFATE 4 MG/ML 1 ML CARP\\VIAL IV PRN (04:35)
[2023-05-14 05:04] LABS: Hematocrit (blood only) 41.9 % (42.0-52.0); Hemoglobin 14.8 g/dl (14.0-18.0); Mean Corpuscular Hemoglobin 30.3 pg (25.0-34.0); Mean Corpuscular Hgb Conc 35.3 g/dL (32.0-36.0); Mean Corpuscular Volume 85.9 fL (80.0-100.0); Mean Platelet Volume 9.3 fL (9.4-12.4); Platelet Count 198 K/uL (130-400); RDW Coefficient of Variation 13.1 % (11.5-14.5); RDW Standard Deviation 41.4 fL (36.4-46.3); Red Blood Count 4.88 M/uL (4.70-6.10)
[2023-05-14 05:08] LABS: Albumin Globulin Ratio 1.5 (0.9-2); Albumin Level 3.9 gm/dl (3.4-5.0); BUN Creatinine Ratio 12.6 (10-20); Calcium 8.8 mg/dl (8.6-10.3); Creatinine Clr Calc Pharmacy 81.6 ml/min; Est GFR (African American) 80.3 ml/min; Est GFR (Non-African American) 69.3 ml/min; Globulin 2.6 gm/dl (2.5-4.0); Magnesium 1.7 mg/dl (1.7-2.4); Phosphorus 3.6 mg/dl (2.5-4.9); Potassium 3.4 mmol/L (3.5-5.1); Total Protein 6.5 gm/dl (6.0-8.3)
[2023-05-14] MEDS: SIMETHICONE 80 MG CHEW PO PRN (08:49)
[2023-05-14] MEDS: FAMOTIDINE 20 MG in SYRINGE 3 ML IV SCH ×2 (08:50→23:10)
[2023-05-14] MEDS ORDERED: POTASSIUM CHLORIDE CRTAB 20 MEQ TABCR PO STA ×2 (09:01→15:13)
[2023-05-14] MEDS: ADVANCED PROBIOTIC 1250 MG CAPSULE PO SCH (11:24)
[2023-05-14] MEDS: FLUTICASONE/VILANTEROL 200/25MCG 14 PUFFS/INHALER INH SCH (11:24)
[2023-05-14] MEDS: PANTOprazole 40 MG TAB PO SCH (11:25)
--- NOTE | 2023-05-14 12:39 | Surgery Progress Note ---
Date of Service May 14, 2023 Assessment & Plan (1) Choledocholithiasis: Plan: POD # 2 ERCP with sphincterotomy and biliary stent placement for + choledocholithiasis avss persistent pain no leukocytosis t. bili normalized, lfts mostly wnl, ALT improving Plan: Okay for low fat diet would recommend continuing antibiotics per GI recommendations as well as to cover for any cholecystitis prior to scheduling patient for outpatient cholecystectomy low fat diet until cholecystectomy follow up with Dr. Somers in 1-2 weeks to discuss elective cholecystectomy prior to stent removal. if tolerates low fat diet , okay for discharge from surgery standpoint today Discussed with Dr. Miguel Somers has seen patient and present during my examination. Admission and Anticipated Discharge Date Admission Date: May 11, 2023 Subjective still having pain, wants low fat food and not just liquids, feels this is making his pain worse no n,v having gas pain Physical Exam Constitutional: WD/WN, vitals as above no acute distress and not ill appearing Gastrointestinal (Abdomen): Inspection/Auscultation: abdomen normal to inspection; abdomen not distended Percussion/Palpation: + abdomen tender (RUQ and epigastrium) and abdomen soft; no guarding, abdomen not rigid and abdomen not firm Skin: no rashes, warm and dry no jaundice Psychiatric: Orientation: alert and oriented x 3 Results & Data Vital Signs (Past 12 Hours) Vital Signs Temp Pulse Resp BP BP Pulse Ox O2 Del Method 05/14/23 11:19 37.2 C 69 16 143/90 H 95 Room Air 05/14/23 07:30 37.2 C 73 18 146/77 H 97 Room Air 05/14/23 03:50 37.0 C 71 18 125/69 96 Room Air Laboratory Results 05/14/23 05/14/23 Range/Units 04:26 04:26 WBC 9.20 (4.8-10.8) K/ul RBC 4.88 (4.70-6.10) M/uL Hgb 14.8 (14.0-18.0) g/dl Hct 41.9 L (42.0-52.0) % MCV 85.9 (80.0-100.0) fL MCH 30.3 (25.0-34.0) pg MCHC 35.3 (32.0-36.0) g/dL RDW Std Deviation 41.4 (36.4-46.3) fL RDW Coeff of Javier 13.1 (11.5-14.5) % Plt Count 198 (130-400) K/uL MPV 9.3 L (9.4-12.4) fL Sodium 138 (136-145) mmol/L Potassium 3.4 L (3.5-5.1) mmol/L Chloride 107 (98-107) mmol/L Carbon Dioxide 25 (21-32) mmol/L Anion Gap 6 (3-11) BUN 15 (6-23) mg/dl Creatinine 1.19 (0.6-1.4) mg/dl Est Cr Clr Drug Dosing 81.6 ml/min Est GFR ( Amer) 80.3 ml/min Est GFR (Non-Af Amer) 69.3 ml/min BUN/Creatinine Ratio 12.6 (10-20) Glucose 122 H (70-99(Fasting)) mg/dl Calcium 8.8 (8.6-10.3) mg/dl Phosphorus 3.6 D (2.5-4.9) mg/dl Magnesium 1.7 (1.7-2.4) mg/dl Total Bilirubin 1.0 D (0.2-1.0) mg/dl AST 37 (13-39) U/L ALT 155 H (7-52) U/L Alkaline Phosphatase 104 (34-104) U/L Total Protein 6.5 (6.0-8.3) gm/dl Albumin 3.9 (3.4-5.0) gm/dl Globulin 2.6 (2.5-4.0) gm/dl Albumin/Globulin Ratio 1.5 (0.9-2)
[2023-05-14] MEDS ORDERED: MoRPHine SULFATE 2 MG/ML CARP IV PRN (13:45)
[2023-05-14] MEDS: CIPROFLOXACIN / D5W 400 MG/200 ML BAG IV SCH (13:56)
[2023-05-14] MEDS ORDERED: POTASSIUM CHLORIDE / WTR 10 MEQ/100 ML PLCT IV SCH (14:15)
--- NOTE | 2023-05-14 14:23 | Hospitalist Progress Note ---
Date of Service May 14, 2023 Assessment & Plan (1) Abdominal pain: Plan: 52-year-old man with past medical significant for hyperlipidemia, hypothyroidism, sleep apnea, chronic kidney disease stage II, GERD, generalized osteoarthritis, Tourette's syndrome, chronic neck pain, PTSD, ADD, presents with worsening of his chronic abdominal pain w/ radiation to rt shoulder a/w nausea and dry heaves. Pt reports low appetite but no swallowing problem and reports losing 30 lbs in last 2 months. Pt reports getting shiga toxin in Apr. 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 Patient reports multiple loose stools per day at home. Says lost 30 pounds last 2 months; historical weight in our system seems to be stable arond 99Kg Chest and abdominal x-ray with no acute finding. DVT ultrasound with trace nonspecific pericholecystic fluid, no cholelithiasis or gallbladder wall thickening noted. No biliary ductal dilatation noted. CT of the abdomen and pelvis with no acute findings. Leukocytosis and mild fever at presentation. GI evaluated, recommends EUS plus minus ERCP/hepatitis panel, HUA, AMA, ASMA, HIV screening/antibiotic with biliary coverage. Follow-up for POZO with mild fibrosis as outpatient. EGD / normal exam. US / - dilatation of CBD up to 8 mm, 2 stones in the CBD, multiple stones in the GB, sludge in the GB, fatty infiltration of the liver, pancreas fairly WNL. ERCP 10/major papilla appeared congested, choledocholithiasis was found -> complete removal was accomplished by biliary sphincterotomy and balloon extraction/1 biliary stent was placed into the common bile duct. Per GI, broad-spectrum antibiotic for 10 days, surgical referral to discuss chol ecystectomy, ERCP in 6 weeks to remove the stent. Hepatitis panel negative, HIV screen negative Stool studies not collected. Taper down Pain control meds as able, IV Pepcid. Pt on low fat/soft diet now as per pt's request to be advanced to soft diet despite abd pain. c/w cipro and metron 10/4 for total of 10 days. Pt has been declining atb on and off. Avoid NSAIDs x 7 days from 104 given ERCP/sphincterotomy. OP cholecystectomy per Gen Sx, f/u as OP. Pt report increaseing epigastric pain today, sent lipase US abd, will follow d/w Sx, if pain improving w/ low fat diet, can dc from their POV. Chest pain: Says coming from abdomen. Troponin x3 negative. EKG with no acute ST or T changes. Other chronic medical conditions: History of hypothyroidism, and sleep apnea, GERD on Protonix, insomnia on Lunesta --- continue with/resume home meds as and when able. DVT prophylaxis SCDs for now Disposition med/telemetry. Full code Time spent evaluating patient, direct bedside care, chart review, placing orders, interpretation of diagnostic studies, discussion with consultants, patie nt, and family members, as well as other required patient management activities is _60___ minutes. Please note the above document was generated using voice recognition software. It may contain grammatical, syntax or spelling errors. Any formal questions or concerns about the content, text or information contained within the body of this dictation should be directly addressed to the undersigned for clarification. Admission and Anticipated Discharge Date Admission Date: May 11, 2023 Subjective Patient was seen and examined at bedside. Patient was lying in bed, on room air, resting comfortably, not in any acute distress. Patient states ongoing upper belly pain, it is worse today and comparing it to what he came in with today. He wants to eat soft diet, patient was adamant about it and very upset and stated even if it worsens his belly pain he would want some solid diet only. Soft diet was ordered. Patient advised to continue with low-fat diet. Patient bringing up that he does not like to be on antibiotic every day in the morning around, indepth counseling is being done every day in the morning during rounds. He seems satisfied at the end of discussion but again was refusing antibiotic when nurses were administering antibiotic. Discussed with surgery, plan to DC if tolerating low-fat/soft diet. Patient with worsening pain, will order lipase and ultrasound abdomen. Physical Exam Physical Exam: GENERAL: Alert and oriented x3. NAD, on RA. HEENT: No pallor, no icterus. Pupils equal, round and reactive to light. Oral mucosa moist. NECK: No JVD, no neck masses. HEART: S1 and S2 heard. Regular rate and rhythm. No murmur, no gallop. RESPIRATORY SYSTEM: Normal AP diameter. No accessory muscle use. No wheezing, no crackles. ABDOMEN: Soft, bowel sounds present, no distention. epigastric tender CENTRAL NERVOUS SYSTEM: No facial droop. Speech is clear. Obeys simple commands. Moves extremities. EXTREMITIES: No edema, no erythema seen. Results & Data Results & Data Vital Signs (Past 12 Hours) Vital Signs Temp Pulse Resp BP BP Pulse Ox O2 Del Method 05/14/23 11:19 37.2 C 69 16 143/90 H 95 Room Air 05/14/23 07:30 37.2 C 73 18 146/77 H 97 Room Air 05/14/23 03:50 37.0 C 71 18 125/69 96 Room Air (1) Abdominal pain Abdominal location: epigastric Qualified Code(s): R10.13 - Epigastric pain
[2023-05-14] MEDS: CIPROFLOXACIN 500 MG TAB PO SCH ×2 (14:53→23:09)
[2023-05-14] MEDS: metroNIDAZOLE 500 MG TAB PO SCH ×2 (14:53→23:07)
[2023-05-14] MEDS: ONDANSETRON INJ 2 MG/ML 2 ML VIAL IV PRN (16:53)
--- NOTE | 2023-05-14 21:37 | Ultrasound Report ---
ULTRASOUND RIGHT UPPER QUADRANT ABDOMEN CLINICAL HISTORY: Epigastric abdominal pain. COMPARISON STUDY: Abdominal CT dated 05/12/2023 TECHNIQUE: Real-time, grayscale, and color flow sonography of the right upper quadrant of the abdomen was performed. Images are reviewed in the transverse and longitudinal planes. FINDINGS: Liver: The liver is top normal in size and demonstrates heterogeneously increased echotexture indicat ing steatosis. Fatty sparing is seen adjacent to gallbladder fossa. There is no intrahepatic biliary ductal dilatation. The main portal vein is patent. Gallbladder: The gallbladder is normal in appearance. No gallstones are identified. There is no gallb ladder wall thickening or pericholecystic fluid. A sonographic Geiger's sign is reportedly absent. Th e common bile duct measures up to 0.5 cm in diameter. A common bile duct stent is in place. Pancreas: Visualized portions of the pancreatic head and body are normal in appearance. The splenic v ein is patent. Right kidney: Survey images of the right kidney demonstrate normal size and echotexture. There is no hydronephrosis. Ascites: None. IMPRESSION: 1. No gallstones are identified. 2. Hepatic steatosis. 3. A common bile duct stent is in place. No intra or extrahepatic biliary ductal dilatation is seen. ACT 112: Negative or not required by law. Electronically signed by: Lang Garcia M.D. 05/14/2023 9:36 PM
[2023-05-14] MEDS: ESZOPICLONE 1 MG TAB PO SCH (23:07)
[2023-05-15] MEDS: FAMOTIDINE 20 MG in SYRINGE 3 ML IV SCH ×3 (00:13→20:56)
--- NOTE | 2023-05-15 06:23 | Surgery Progress Note ---
Date of Service May 15, 2023 Assessment & Plan (1) Choledocholithiasis: Plan: Patient is status post ERCP on 05/12/2023 (postop day #3) Patient initially seen by [facility] surgery and plans noted for outpatient cholecystectomy Check a.m. labs when available; I have ordered a lipase to be drawn with his a.m. labs to assess for possible pancreatitis due to the patient's reported epigastric pain Continue antibiotics while hospitalizedhe is receiving Cipro and Flagyl Admission and Anticipated Discharge Date Admission Date: May 11, 2023 Supervising Physician Co-Signing Physician Notes I have seen and discussed this patient with the surgical PA. The patient continues to c/o epigastric pain. Lipase this am has shown an additional increase to now 571 from 400's yesterday. No acute surgical intervention on the gallbladder, planned outpatient surgery potentially with Dr. Somers. US did not reveal any gallbladder stones or sludge. Question possibility of a primary duct stone. Follow up with Dr. Somers in the office. Patient now with some evidence for pancreatitis s/p ERCP 3 days ago. Subjective Patient is currently resting comfortably in bed. He notes that he ate solid food last night and did report some epigastric abdominal pain. He denies any nausea or vomiting. He notes that he has not had a bowel movement but is passing flatus. Physical Exam Gastrointestinal (Abdomen): Abdomen is soft and nondistended. There is no rebound tenderness or guarding but patient did have pain noted with palpation in the epigastric area. Results & Data Vital Signs (Past 12 Hours) Vital Signs Temp Pulse Resp BP Pulse Ox O2 Del Method 05/15/23 03:59 36.5 C 69 18 132/66 96 Room Air 05/14/23 23:18 36.6 C 74 18 136/90 97 Room Air 05/14/23 19:11 37.5 C 72 20 126/79 97 Room Air PG Care Time/CCT Total # of Minutes Spent Total Time Spent with Patient: Total time spent is greater than 50% in coordination of care (as documented) at patient's floor/unit and/or counseling patient: Coding Level of Care Code 93549 SUB INP/OBS CARE 09/02MIN Diagnoses Choledocholithiasis K80.50
[2023-05-15 06:30] LABS: Albumin Globulin Ratio 1.3 (0.9-2); Albumin Level 4.1 gm/dl (3.4-5.0); BUN Creatinine Ratio 14.5 (10-20); Calcium 8.7 mg/dl (8.6-10.3); Creatinine Clr Calc Pharmacy 87.5 ml/min; Est GFR (African American) 88.4 ml/min; Est GFR (Non-African American) 76.2 ml/min; Globulin 3.1 gm/dl (2.5-4.0); Magnesium 1.9 mg/dl (1.7-2.4); Phosphorus 4.1 mg/dl (2.5-4.9); Potassium 3.5 mmol/L (3.5-5.1); Total Protein 7.2 gm/dl (6.0-8.3)
[2023-05-15 06:53] LABS: Hematocrit (blood only) 45.5 % (42.0-52.0); Hemoglobin 16.2 g/dl (14.0-18.0); Mean Corpuscular Hemoglobin 30.3 pg (25.0-34.0); Mean Corpuscular Hgb Conc 35.6 g/dL (32.0-36.0); Platelet Count 215 K/uL (130-400); RDW Standard Deviation 40.1 fL (36.4-46.3); Red Blood Count 5.35 M/uL (4.70-6.10); White Blood Count 7.12 K/ul (4.8-10.8)
[2023-05-15] MEDS: CIPROFLOXACIN 500 MG TAB PO SCH ×2 (09:24→20:56)
[2023-05-15] MEDS: ADVANCED PROBIOTIC 1250 MG CAPSULE PO SCH (09:25)
[2023-05-15] MEDS: metroNIDAZOLE 500 MG TAB PO SCH ×3 (09:26→20:57)
[2023-05-15] MEDS: PANTOprazole 40 MG TAB PO SCH (09:26)
[2023-05-15] MEDS: ENOXAPARIN INJ 40 MG/0.4 ML SYR SQ SCH (09:27)
[2023-05-15] MEDS: FLUTICASONE/VILANTEROL 200/25MCG 14 PUFFS/INHALER INH SCH (09:28)
[2023-05-15] MEDS: ACETAMINOPHEN 325 MG TAB PO PRN ×2 (09:35→18:39)
[2023-05-15] MEDS: LACTATED RINGER'S 1,000 ML IV SCH ×3 (11:58→20:33)
[2023-05-15] MEDS ORDERED: OPTIRAY 320 100ml IV ONE (13:03)
[2023-05-15 14:37] LABS: Cdiff Toxin B Gene (2yr or >) Positive Cdiff Gene (Neg)
[2023-05-15 14:56] LABS: Adenovirus F 40/41 PCR Not Detected (NotDetected); Astrovirus PCR Not Detected (NotDetected); Campylobacter PCR Not Detected (NotDetected); Cryptosporidium PCR Not Detected (NotDetected); Cyclospora cayetanensis PCR Not Detected (NotDetected); Entamoeba histolytica PCR Not Detected (NotDetected); Enteroaggregative E.coli(EAEC) Not Detected (NotDetected); Enteropathogenic E.coli (EPEC) Not Detected (NotDetected); Enterotoxigenic E.coli (ETEC) Not Detected (NotDetected); Giardia lamblia PCR Not Detected (NotDetected); Norovirus GI/GII PCR Not Detected (NotDetected); Plesiomonas shigelloides PCR Not Detected (NotDetected); Rotavirus A PCR Not Detected (NotDetected); Salmonella PCR Not Detected (NotDetected); Sapovirus PCR Not Detected (NotDetected); Shiga-like Toxin E.coli (STEC) Not Detected (NotDetected); Shigella/Enteroinvasive E.coli Not Detected (NotDetected); Vibrio cholerae PCR Not Detected (NotDetected); Vibrio species PCR Not Detected (NotDetected); Yersinia enterocolitica PCR Not Detected (NotDetected)
--- NOTE | 2023-05-15 15:07 | Hospitalist Progress Note ---
Date of Service May 15, 2023 Assessment & Plan (1) Abdominal pain: Plan: 52-year-old man with past medical significant for hyperlipidemia, hypothyroidism, sleep apnea, chronic kidney disease stage II, GERD, generalized osteoarthritis, Tourette's syndrome, chronic neck pain, PTSD, ADD, presents with worsening of his chronic abdominal pain w/ radiation to rt shoulder a/w nausea and dry heaves. Pt reports low appetite but no swallowing problem and reports losing 30 lbs in last 2 months. Pt reports getting shiga toxin in Apr. 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 Patient reports multiple loose stools per day at home. Says lost 30 pounds last 2 months; historical weight in our system seems to be stable arond 99Kg Chest and abdominal x-ray with no acute finding. DVT ultrasound with trace nonspecific pericholecystic fluid, no cholelithiasis or gallbladder wall thickening noted. No biliary ductal dilatation noted. CT of the abdomen and pelvis with no acute findings. Leukocytosis and mild fever at presentation. GI evaluated, recommends EUS plus minus ERCP/hepatitis panel, HUA, AMA, ASMA, HIV screening/antibiotic with biliary coverage. Follow-up for POZO with mild fibrosis as outpatient. EGD 05/12 normal exam. US 05/12 - dilatation of CBD up to 8 mm, 2 stones in the CBD, multiple stones in the GB, sludge in the GB, fatty infiltration of the liver, pancreas fairly WNL. ERCP 10major papilla appeared congested, choledocholithiasis was found -> complete removal was accomplished by biliary sphincterotomy and balloon extraction/1 biliary stent was placed into the common bile duct. Per GI, broad-spectrum antibiotic for 10 days, surgical referral to discuss cholecystectomy, ERCP in 6 weeks to remove the stent. Hepatitis panel negative, HIV screen negative Stool studies -positive C. difficile seen, pending C. difficile toxin, rest of the test negative. Taper down Pain control meds as able, IV Pepcid. LFTs trending down. c/w cipro and metron 10/ for total of 10 days. Pt has been declining atb on and off. Avoid NSAIDs x 7 days from 05/12 given ERCP/sphincterotomy. OP cholecystectomy per Gen Sx, f/u as OP. Likely post ERCP pancreatitis Patient with worsening epigastric pain since yesterday, was adamant on being put on diet. Lipase uptrending, finally able to convince him to be n.p.o. status. Fluid started. GI notified. US abdomen 05/[address] abdomen 05/15 sent. Will follow Lipase in AM. Chest pain: Says coming from abdomen. Troponin x3 negative. EKG with no acute ST or T changes. Other chronic medical conditions: History of hypothyroidism, and sleep apnea, GERD on Protonix, insomnia on Lunesta --- continue with/resume home meds as and when able. DVT prophylaxis SCDs for now Disposition med/telemetry. Full code Went in to the bedside again as RN updated pt and his wanted me to be at bedside for explanation again. Explained in detail the current status of the patient and need for npo status currently. Answered all their questions to their full satisfaction. Time spent evaluating patient, direct bedside care, chart review, placing orders, interpretation of diagnostic studies, discussion with consultants, patient, and family members, as well as other required patient management activities is _60___ minutes. Please note the above document was generated using voice recognition software. It may contain grammatical, syntax or spelling errors. Any formal questions or concerns about the content, text or information contained within the body of this dictation should be directly addressed to the undersigned for clarification. Admission and Anticipated Discharge Date Admission Date: May 11, 2023 Subjective Patient was seen and examined at bedside. Patient was lying in bed, on room air, resting comfortably, not in any acute distress. Patient's lipase increasing, counseled regarding the need for n.p.o., patient was adamant on being on diet consistently, finally agreed for n.p.o. status. Discussed with GI, continue with n.p.o. status and IV fluids for now. Patient continues to have epigastric pain. Denies nausea or vomiting today. Patient explained multiple times and in depth regarding the plan of care and answered his questions multiple times. Physical Exam Physical Exam: GENERAL: Alert and oriented x3. NAD, on RA. HEENT: No pallor, no icterus. Pupils equal, round and reactive to light. Oral mucosa moist. NECK: No JVD, no neck masses. HEART: S1 and S2 heard. Regular rate and rhythm. No murmur, no gallop. RESPIRATORY SYSTEM: Normal AP diameter. No accessory muscle use. No wheezing, no crackles. ABDOMEN: Soft, bowel sounds present, no distention. epigastric tender CENTRAL NERVOUS SYSTEM: No facial droop. Speech is clear. Obeys simple commands. Moves extremities. EXTREMITIES: No edema, no erythema seen. Results & Data Results & Data Vital Signs (Past 12 Hours) Vital Signs Temp Pulse Resp BP Pulse Ox O2 Del Method 05/15/23 11:34 37.2 C 70 18 136/86 96 Room Air 05/15/23 06:46 37.3 C 73 18 127/75 98 Room Air 05/15/23 03:59 36.5 C 69 18 132/66 96 Room Air (1) Abdominal pain Abdominal location: epigastric Qualified Code(s): R10.13 - Epigastric pain
[2023-05-15 15:41] LABS: Cdiff Antigen Positive; Cdiff Toxin A+B Negative Cdiff Toxin (Negative)
--- NOTE | 2023-05-15 18:22 | CT Scan Report ---
CT SCAN OF THE ABDOMEN WITH IV CONTRAST CLINICAL HISTORY: Upper abdominal pain. COMPARISON STUDY: Abdominal CT dated 05/12/2023. Abdominal ultrasound dated 05/14/2023. TECHNIQUE: Following the IV administration of 90 cc of Optiray 320, CT scan of the abdomen is perfor med from the lung bases to the pelvic inlet. Images are reviewed in the axial, sagittal, and coronal planes. IV contrast was administered without complication. A dose lowering technique was utilized adh ering to the principles of ALARA. CT DOSE: 804.92 mGy.cm FINDINGS: Lung bases: The heart is normal in size and without pericardial effusion. The lung bases are clear. Liver: The contrast-enhanced liver is top normal in size and demonstrates diffusely diminished attenu ation indicating steatosis. Fatty sparing is seen adjacent to gallbladder fossa. There is no intrahep atic biliary ductal dilatation. The hepatic veins and portal veins are patent. A common bile duct ramy nt is in place. Pneumobilia indicates patency of the stent. Gallbladder: There is gas within the gallbladder lumen. The gallbladder wall appears mildly mild hype remic. There is no clear CT evidence of acute cholecystitis.. Spleen: Normal in size and attenuation. Pancreas: The pancreas is normal in appearance. The gland enhances homogeneously. No surrounding infl ammation or fluid is seen. The splenic vein is patent. Adrenal glands: Unremarkable. Kidneys: The contrast enhanced kidneys are normal in size and without hydronephrosis. Excreted contra st fills the renal collecting systems and proximal ureters. The kidneys enhance and excrete symmetric ally. Abdominal vasculature: The abdominal aorta is normal in course and caliber. Bowel: Imaged portions of the small bowel and colon show no evidence of obstruction. Small duodenal d iverticula are noted. Peritoneum: There is no intraperitoneal free air or abdominal ascites. There is a fat-containing umbi lical hernia. Lymphadenopathy: None. Skeletal structures: No lytic or blastic lesions are seen. IMPRESSION: 1. No acute infectious or inflammatory findings are identified in the abdomen. 2. A common bile duct stent is in place. Pneumobilia and gas within the gallbladder lumen suggest pat ency of the stent. 3. Hepatic steatosis. 4. Additional findings as above. ACT 112: Negative or not required by law. Electronically signed by: Lang Garcia M.D. 05/15/2023 6:19 PM
[2023-05-15] MEDS ORDERED: LORazepam 0.5 MG TAB PO PRN (19:53)
[2023-05-15] MEDS: ESZOPICLONE 1 MG TAB PO SCH (20:57)
[2023-05-15] MEDS: CALCIUM CARBONATE 500 MG CHEWABLE TAB PO PRN (22:58)
[2023-05-16] MEDS: LACTATED RINGER'S 1,000 ML IV SCH ×4 (00:22→19:49)
--- NOTE | 2023-05-16 05:25 | Surgery Progress Note ---
This case was discussed with the surgical PA. I agree with this plan. Date of Service May 16, 2023 Assessment & Plan (1) Choledocholithiasis: Plan: Patient is status post ERCP on 05/12/2023 (postop day #4) Plans noted for outpatient cholecystectomy with [facility] surgery Lipase on 05/15/2023 noted to be elevated with a level of 571, suspicion of post ERCP pancreatitis Clinically, the patient's pancreatitis seems to be resolving. A.m. labs have been ordered and are pending Consider slow advancement of diet as pancreatitis continues to resolve Stool studies are positive for the C. difficile gene (he is receiving Flagyl) Continue antibiotics while hospitalizedhe is receiving Cipro and Flagyl Admission and Anticipated Discharge Date Admission Date: May 11, 2023 Subjective Patient is resting comfortably in bed. The patient had reported some epigastric pain yesterday and therefore his diet was backed down to n.p.o. status. The epigastric pain patient reported yesterday has now resolved. He denies any fevers, shakes, or chills. He denies any nausea or vomiting. Physical Exam Gastrointestinal (Abdomen): At the time of my exam the abdomen was soft and nonrigid. It is nondistended. There is no pain with palpation specifically no epigastric pain. There is no rebound tenderness or guarding. Results & Data Vital Signs (Past 12 Hours) Vital Signs Temp Pulse Resp BP Pulse Ox O2 Del Method 05/15/23 19:53 36.8 C 72 20 129/78 98 Room Air PG Care Time/CCT Total # of Minutes Spent Total Time Spent with Patient: Total time spent is greater than 50% in coordination of care (as documented) at patient's floor/unit and/or counseling patient: Coding Level of Care Code 98984 SUB INP/OBS CARE 09/02MIN Diagnoses Choledocholithiasis K80.50
[2023-05-16 06:35] LABS: Hematocrit (blood only) 43.7 % (42.0-52.0); Hemoglobin 15.7 g/dl (14.0-18.0); Mean Corpuscular Hemoglobin 30.1 pg (25.0-34.0); Mean Corpuscular Hgb Conc 35.9 g/dL (32.0-36.0); Mean Corpuscular Volume 83.7 fL (80.0-100.0); Mean Platelet Volume 8.8 fL (9.4-12.4); Platelet Count 221 K/uL (130-400); RDW Coefficient of Variation 12.8 % (11.5-14.5); RDW Standard Deviation 38.6 fL (36.4-46.3); Red Blood Count 5.22 M/uL (4.70-6.10); White Blood Count 9.56 K/ul (4.8-10.8)
[2023-05-16 06:54] LABS: Albumin Globulin Ratio 1.4 (0.9-2); Albumin Level 3.9 gm/dl (3.4-5.0); Bilirubin,Total 1.1 mg/dl (0.2-1.0); Calcium 8.8 mg/dl (8.6-10.3); Creatinine Clr Calc Pharmacy 75.8 ml/min; Est GFR (African American) 74.3 ml/min; Est GFR (Non-African American) 64.1 ml/min; Globulin 2.8 gm/dl (2.5-4.0); Total Protein 6.7 gm/dl (6.0-8.3)
[2023-05-16] MEDS: ENOXAPARIN INJ 40 MG/0.4 ML SYR SQ SCH (07:21)
[2023-05-16] MEDS: metroNIDAZOLE 500 MG TAB PO SCH ×3 (09:49→20:15)
[2023-05-16] MEDS: FLUTICASONE/VILANTEROL 200/25MCG 14 PUFFS/INHALER INH SCH (09:49)
[2023-05-16] MEDS: CIPROFLOXACIN 500 MG TAB PO SCH ×2 (09:50→20:16)
[2023-05-16] MEDS: ADVANCED PROBIOTIC 1250 MG CAPSULE PO SCH (09:50)
[2023-05-16] MEDS: PANTOprazole 40 MG TAB PO SCH (09:51)
[2023-05-16] MEDS: FAMOTIDINE 20 MG in SYRINGE 3 ML IV SCH ×2 (10:07→20:14)
[2023-05-16] MEDS: ACETAMINOPHEN 325 MG TAB PO PRN (10:14)
--- NOTE | 2023-05-16 16:22 | Hospitalist Progress Note ---
Date of Service May 16, 2023 Assessment & Plan (1) Abdominal pain: Plan: 52-year-old man with past medical significant for hyperlipidemia, hypothyroidism, sleep apnea, chronic kidney disease stage II, GERD, generalized osteoarthritis, Tourette's syndrome, chronic neck pain, PTSD, ADD, presents with worsening of his chronic abdominal pain w/ radiation to rt shoulder a/w nausea and dry heaves. Pt reports low appetite but no swallowing problem and reports losing 30 lbs in last 2 months. Pt reports getting shiga toxin in Apr. 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 Patient reports multiple loose stools per day at home. Says lost 30 pounds last 2 months; historical weight in our system seems to be stable arond 99Kg Chest and abdominal x-ray with no acute finding. DVT ultrasound with trace nonspecific pericholecystic fluid, no cholelithiasis or gallbladder wall thickening noted. No biliary ductal dilatation noted. CT of the abdomen and pelvis with no acute findings. Leukocytosis and mild fever at presentation. GI evaluated, recommends EUS plus minus ERCP/hepatitis panel, HUA, AMA, ASMA, HIV screening/antibiotic with biliary coverage. Follow-up for POZO with mild fibrosis as outpatient. EGD 05/12 normal exam. US 05/12 - dilatation of CBD up to 8 mm, 2 stones in the CBD, multiple stones in the GB, sludge in the GB, fatty infiltration of the liver, pancreas fairly WNL. ERCP 10major papilla appeared congested, choledocholithiasis was found -> complete removal was accomplished by biliary sphincterotomy and balloon extraction/1 biliary stent was placed into the common bile duct. Per GI, broad-spectrum antibiotic for 10 days, surgical referral to discuss cholecystectomy, ERCP in 6 weeks to remove the stent. Hepatitis panel negative, HIV screen negative Stool studies -positive C. difficile gene, negative C. difficile toxin, rest of the test negative. Taper down Pain control meds as able, IV Pepcid. LFTs trending down to almost normal c/w cipro and metron 05/12 for total of 10 days. Pt has been declining atb on and off. Avoid NSAIDs x 7 days from 05/12 given ERCP/sphincterotomy. OP cholecystectomy per Gen Sx, f/u as OP. Likely post ERCP pancreatitis Patient with worsening epigastric pain since 05/14, likely secondary to post ERCP pancreatitis US abdomen 05/[address] abdomen 05/15 reviewed. Lipase trending down, clinically symptoms improving. Clear liquid diet, advance diet as tolerated, labs in AM. Likely DC tomorrow. Chest pain: Says coming from abdomen. Troponin x3 negative. EKG with no acute ST or T changes. Other chronic medical conditions: History of hypothyroidism, and sleep apnea, GERD on Protonix, insomnia on Lunesta --- continue with/resume home meds as and when able. DVT prophylaxis SCDs for now Disposition med/telemetry. Full code Time spent evaluating patient, direct bedside care, chart review, placing orders, interpretation of diagnostic studies, discussion with consultants, patient, and family members, as well as other required patient management activities is _60___ minutes. Please note the above document was generated using voice recognition software. It may contain grammatical, syntax or spelling errors. Any formal questions or concerns about the content, text or information contained within the body of this dictation should be directly addressed to the undersigned for clarification. Admission and Anticipated Discharge Date Admission Date: May 11, 2023 Subjective Patient was seen and examined at bedside. Patient was lying in bed, on room air, resting comfortably, not in any acute distress. Patient reports improving epigastric pain, patient has been n.p.o., epigastric tenderness negative on exam. Patient started on clear liquid diet today advance to full liquid by evening if with no further pain. Continue IV fluids until later in the evening today. Patient declines any other complaints. Patient overall feels better. Physical Exam Physical Exam: GENERAL: Alert and oriented x3. NAD, on RA. HEENT: No pallor, no icterus. Pupils equal, round and reactive to light. Oral mucosa moist. NECK: No JVD, no neck masses. HEART: S1 and S2 heard. Regular rate and rhythm. No murmur, no gallop. RESPIRATORY SYSTEM: Normal AP diameter. No accessory muscle use. No wheezing, no crackles. ABDOMEN: Soft, bowel sounds present, no distention. epigastric tender absent. CENTRAL NERVOUS SYSTEM: No facial droop. Speech is clear. Obeys simple commands. Moves extremities. EXTREMITIES: No edema, no erythema seen. Results & Data Results & Data Vital Signs (Past 12 Hours) Vital Signs Temp Pulse Resp BP Pulse Ox O2 Del Method 05/16/23 15:51 36.7 C 67 15 137/87 96 Room Air 05/16/23 07:16 36.9 C 76 16 116/76 96 Room Air (1) Abdominal pain Abdominal location: epigastric Qualified Code(s): R10.13 - Epigastric pain
[2023-05-16] MEDS: ESZOPICLONE 1 MG TAB PO SCH (20:15)
[2023-05-16] MEDS: SIMETHICONE 80 MG CHEW PO PRN (20:16)
[2023-05-16] MEDS ORDERED: OPTIRAY 320 100ml IV ONE (21:18)
[2023-05-16 21:39] LABS: Basophils # (auto) 0.03 K/uL (0.00-0.20); Basophils % (auto) 0.3 %; Eosinophils # (auto) 0.18 K/uL (0.00-0.50); Eosinophils % (auto) 2.1 %; Hematocrit (blood only) 42.6 % (42.0-52.0); Hemoglobin 15.7 g/dl (14.0-18.0); Immature Granulocytes # (auto) 0.06 K/uL (0.01-0.20); Immature Granulocytes % (auto) 0.7 %; Lymphocytes # (auto) 3.04 K/uL (1.20-3.40); Lymphocytes % (auto) 34.9 %; Mean Corpuscular Hemoglobin 30.5 pg (25.0-34.0); Mean Corpuscular Hgb Conc 36.9 g/dL (32.0-36.0); Mean Corpuscular Volume 82.7 fL (80.0-100.0); Mean Platelet Volume 8.5 fL (9.4-12.4); Monocytes # (auto) 0.79 K/uL (0.11-0.59); Monocytes % (auto) 9.1 %; Neutrophils # (auto) 4.62 K/uL (1.40-6.50); Neutrophils % (auto) 52.9 %; Platelet Count 222 K/uL (130-400); RDW Coefficient of Variation 12.4 % (11.5-14.5); RDW Standard Deviation 37.8 fL (36.4-46.3); Red Blood Count 5.15 M/uL (4.70-6.10); White Blood Count 8.72 K/ul (4.8-10.8)
[2023-05-16 21:57] LABS: Albumin Globulin Ratio 1.4 (0.9-2); Albumin Level 3.9 gm/dl (3.4-5.0); BUN Creatinine Ratio 12.8 (10-20); Bilirubin,Total 1.2 mg/dl (0.2-1.0); Calcium 8.7 mg/dl (8.6-10.3); Creatinine Clr Calc Pharmacy 82.3 ml/min; Est GFR (Non-African American) 70.8 ml/min; Globulin 2.7 gm/dl (2.5-4.0); Potassium 3.4 mmol/L (3.5-5.1); Total Protein 6.6 gm/dl (6.0-8.3)
[2023-05-16] MEDS ORDERED: POTASSIUM CHLORIDE CRTAB 20 MEQ TABCR PO STA (22:00)
[2023-05-16 22:38] LABS: Magnesium 1.9 mg/dl (1.7-2.4)
--- NOTE | 2023-05-16 22:42 | CT Scan Report ---
Exam(s): CT ABDOMEN + PELVIS With Contrast IV Amt: 93ml EXAM: CT Abdomen and Pelvis With Intravenous Contrast CLINICAL HISTORY: Reason for exam: worsening abd pain. TECHNIQUE: Axial computed tomography images of the abdomen and pelvis with intravenous contrast. CTDI is 26 mGy and DLP is 1348.91 mGy-cm. Automated exposure control was utilized for the study. A dose lowering technique was utilized adhering to the principles of ALARA. CONTRAST: Patient received 93ml of IV contrast COMPARISON: No relevant prior studies available. FINDINGS: Lung bases: Unremarkable. No mass. No consolidation. ABDOMEN: Liver: Hepatic steatosis. Gallbladder and bile ducts: Common bile duct stent. No calcified stones. Pancreas: Unremarkable. No mass. No ductal dilation. Spleen: Unremarkable. No splenomegaly. Adrenals: Unremarkable. No mass. Kidneys and ureters: Unremarkable. No hydronephrosis or delayed nephrogram. Stomach and bowel: Unremarkable. No acute diverticulitis. No small bowel obstruction. No free air. PELVIS: Appendix: No findings to suggest acute appendicitis. Bladder: Unremarkable. No mass. Reproductive: Unremarkable as visualized. ABDOMEN and PELVIS: Intraperitoneal space: See above. Bones/joints: Degenerative changes of the spine. No acute fracture. No dislocation. Soft tissues: Unremarkable. Vasculature: Atherosclerotic changes of the aorta. No abdominal aortic aneurysm. Lymph nodes: Unremarkable. No enlarged lymph nodes. IMPRESSION: No acute findings in the abdomen or pelvis. Electronically signed by: Cain Ferrell MD 05/16/23 22:42 PM
--- NOTE | 2023-05-16 22:51 | Communication Note ---
Date of Service: May 16, 2023 Patient complained to RN of transient worsening of pancreas pain. CT abdomen pelvis: No acute findings in the abdomen or pelvis. Patient currently comfortable. Patient requesting diet to be advanced to solids. He also would like to talk to his GI specialist (Dr. Cash) tomorrow if available. Will relay request to AM provider.
[2023-05-17] MEDS: ACETAMINOPHEN 325 MG TAB PO PRN (00:46)
[2023-05-17 06:57] LABS: Albumin Globulin Ratio 1.5 (0.9-2); BUN Creatinine Ratio 12.4 (10-20); Bilirubin,Total 0.9 mg/dl (0.2-1.0); Calcium 8.6 mg/dl (8.6-10.3); Creatinine Clr Calc Pharmacy 74.6 ml/min; Est GFR (African American) 72.9 ml/min; Est GFR (Non-African American) 62.9 ml/min; Globulin 2.7 gm/dl (2.5-4.0); Potassium 3.7 mmol/L (3.5-5.1); Total Protein 6.7 gm/dl (6.0-8.3)
[2023-05-17] MEDS: CIPROFLOXACIN 500 MG TAB PO SCH (08:21)
[2023-05-17] MEDS: ADVANCED PROBIOTIC 1250 MG CAPSULE PO SCH (08:22)
[2023-05-17] MEDS: PANTOprazole 40 MG TAB PO SCH (08:23)
[2023-05-17] MEDS: metroNIDAZOLE 500 MG TAB PO SCH (08:23)
[2023-05-17] MEDS: FAMOTIDINE 20 MG in SYRINGE 3 ML IV SCH (08:24)
[2023-05-17] MEDS: ENOXAPARIN INJ 40 MG/0.4 ML SYR SQ SCH (08:24)
[2023-05-17] MEDS: FLUTICASONE/VILANTEROL 200/25MCG 14 PUFFS/INHALER INH SCH ×2 (08:24→08:25)
--- NOTE | 2023-05-17 09:47 | Surgery Progress Note ---
Date of Service May 17, 2023 Assessment & Plan (1) Abdominal pain: Plan: Assessment: Patient is a 52 years old gentleman with S/P ERCP removal common bile duct stone with stent placed. Patient developed pancreatitis. However the pancreatitis is a better. Lipase down to 285 from the 435. endo-ultrasound diagnosis of gallstone. However patient had a ultrasound and a CT scan did not show gallstone. No acute cholecystitis. plan, patient can be discharged home today. Follow-up admitted 2 weeks. We will plan to do an outpatient cholecystectomy. pt agreed with the plan, I answered all questions. [phone]. Thanks, sign off today, please call with questions. Admission and Anticipated Discharge Date Admission Date: May 11, 2023 Subjective pt feels better, no significant epigastric pain, no fever. no nausea, no vomiting. pancreatitis, lipase down to 285 from 435. Physical Exam Constitutional: WD/WN, vitals as above Eyes: PERRL, conjunctivae normal, anicteric sclerae Neck: trachea midline, no thyromegaly Respiratory: normal respiratory effort, lungs clear to auscultation Results & Data Vital Signs (Past 12 Hours) Vital Signs Temp Pulse Resp BP Pulse Ox O2 Del Method 05/17/23 07:32 36.8 C 67 16 130/76 98 Room Air Laboratory Results Abnormal lab results 05/16/23 05/16/23 05/17/23 Range/Units 21:25 21:25 06:03 MCHC 36.9 H (32.0-36.0) g/dL MPV 8.5 L (9.4-12.4) fL [place] # (Auto) 0.79 H (0.11-0.59) K/uL Sodium 133 L (136-145) mmol/L Potassium 3.4 L (3.5-5.1) mmol/L Glucose 127 H (70-99(Fasting)) mg/dl Total Bilirubin 1.2 H (0.2-1.0) mg/dl ALT 82 H 76 H (7-52) U/L Lipase 328 H 285 H (11-82) U/L Diagnostic Findings Exam(s): CT ABDOMEN + PELVIS With Contrast IV Amt: 93ml EXAM: CT Abdomen and Pelvis With Intravenous Contrast CLINICAL HISTORY: Reason for exam: worsening abd pain. TECHNIQUE: Axial computed tomography images of the abdomen and pelvis with intravenous contrast. CTDI is 26 mGy and DLP is 1348.91 mGy-cm. Automated exposure control was utilized for the study. A dose lowering technique was utilized adhering to the principles of ALARA. CONTRAST: Patient received 93ml of IV contrast COMPARISON: No relevant prior studies available. FINDINGS: Lung bases: Unremarkable. No mass. No consolidation. ABDOMEN: Liver: Hepatic steatosis. Gallbladder and bile ducts: Common bile duct stent. No calcified stones. Pancreas: Unremarkable. No mass. No ductal dilation. Spleen: Unremarkable. No splenomegaly. Adrenals: Unremarkable. No mass. Kidneys and ureters: Unremarkable. No hydronephrosis or delayed nephrogram. Stomach and bowel: Unremarkable. No acute diverticulitis. No small bowel obstruction. No free air. PELVIS: Appendix: No findings to suggest acute appendicitis. Bladder: Unremarkable. No mass. Reproductive: Unremarkable as visualized. ABDOMEN and PELVIS: Intraperitoneal space: See above. Bones/joints: Degenerative changes of the spine. No acute fracture. No dislocation. Soft tissues: Unremarkable. Vasculature: Atherosclerotic changes of the aorta. No abdominal aortic aneurysm. Lymph nodes: Unremarkable. No enlarged lymph nodes. IMPRESSION: No acute findings in the abdomen or pelvis. ULTRASOUND RIGHT UPPER QUADRANT ABDOMEN CLINICAL HISTORY: Epigastric abdominal pain. COMPARISON STUDY: Abdominal CT dated 05/12/2023 TECHNIQUE: Real-time, grayscale, and color flow sonography of the right upper quadrant of the abdomen was performed. Images are reviewed in the transverse and longitudinal planes. FINDINGS: Liver: The liver is top normal in size and demonstrates heterogeneously increased echotexture indicating steatosis. Fatty sparing is seen adjacent to gallbladder fossa. There is no intrahepatic biliary ductal dilatation. The main portal vein is patent. Gallbladder: The gallbladder is normal in appearance. No gallstones are identified. There is no gallbladder wall thickening or pericholecystic fluid. A sonographic Geiger's sign is reportedly absent. The common bile duct measures up to 0.5 cm in diameter. A common bile duct stent is in place. Pancreas: Visualized portions of the pancreatic head and body are normal in appearance. The splenic vein is patent. Right kidney: Survey images of the right kidney demonstrate normal size and echotexture. There is no hydronephrosis. Ascites: None. IMPRESSION: 1. No gallstones are identified. 2. Hepatic steatosis. 3. A common bile duct stent is in place. No intra or extrahepatic biliary ductal dilatation is seen. (1) Abdominal pain Abdominal location: epigastric Qualified Code(s): R10.13 - Epigastric pain
--- NOTE | 2023-05-17 11:36 | Discharge Summary ---
Date of Service May 17, 2023 Admission HPI Per Admitting Provider 52-year-old man with past medical significant for hyperlipidemia, hypothyroidism, sleep apnea, chronic kidney disease stage II, GERD, generalized osteoarthritis, Tourette's syndrome, chronic neck pain, PTSD, ADD, presents with ongoing abdominal pain. Patient is having chronic abdominal pain states since he got shiga toxin infection in April 2022. Since yesterday pain got worse more in the epigastric and also lower abdomen radiating to back and right shoulder. Also with nausea and dry heaves. Feeling cold but no fevers. Couple of months ago he had some blood in the stool thought to be from hemorrhoids. Currently stools are loose but no blood in the stools. Urine is very dark. Has some chest pain but attributes it coming from his abdomen. When the pain is severe he feels short of breath. Having headaches. Vision is somewhat blurry. No runny nose or sore throat. No difficulty swallowing. Appetite is down. Says he is lost 30 pounds in last 2 months. He also follows with [facility]. Request test for stool for parasites. Past medical history as mentioned above Past surgical history. S/p cardiac cath. Colonoscopy. EGD. EGD with endoscopic ultrasound. Left rebuild eardrum structures. Inguinal hernia repair. Left shoulder arthroscopy. Social history. . No smoking. No alcohol use. No drug use. Family history. Paternal grandfather had colon cancer. Mother had cancer. Father had hyperlipidemia. Hypertension. Stroke. Sister hyperlipidemia. Brother had CABG at age 39. Uncle had cancers. Admission Exam Per Admitting Provider General- Not in distress Head- atraumatic Eyes- PERRL,mild icterus. ENT- oropharynx clear Neck- supple, no JVD. Lungs- clear to auscultation, no wheezing or crakles. Heart- regular rhythm; no murmur, no gallop. Abdomen- normal bowel sounds, soft, tenderness in epigastric region and lower abdomen No distension or guarding seen. Extremities- no pretibial edema, no eryhtema seen. Neuro- alert, oriented x 3; PERRL, no facial palsy; no dysarthria; Non focal. Skin- warm & dry Principal Diagnosis Choledocholithiasis Transaminitis Post ERCP pancreatitis Discharge Exam GENERAL: Alert and oriented x3. NAD, on RA. HEENT: No pallor, no icterus. Pupils equal, round and reactive to light. Oral mucosa moist. NECK: No JVD, no neck masses. HEART: S1 and S2 heard. Regular rate and rhythm. No murmur, no gallop. RESPIRATORY SYSTEM: Normal AP diameter. No accessory muscle use. No wheezing, no crackles. ABDOMEN: Soft, bowel sounds present, no distention. epigastric non tender CENTRAL NERVOUS SYSTEM: No facial droop. Speech is clear. Obeys simple commands. Moves extremities. EXTREMITIES: No edema, no erythema seen. Discharge Data Allergies Allergy/AdvReac Type Severity Reaction Status Date / Time bacitracin Allergy Intermediate ITCHING, Verified 05/11/23 19:30 SEEPING RASH neomycin Allergy Intermediate ITCHING, Verified 05/11/23 19:30 SEEPING RASH Penicillins Allergy Intermediate HIVES Verified 05/11/23 19:30 polymyxin B Allergy Intermediate ITCHING, Verified 05/11/23 19:30 SEEPING RASH quetiapine [From Seroquel] Allergy Intermediate Unknown Verified 05/11/23 19:30 ketamine AdvReac Severe VIOLENT Verified 05/11/23 19:30 BEHAVOIR trazodone AdvReac Severe CHEST Verified 05/11/23 19:30 HEAVINESS Consultations 05/11/23 18:42 ED Decision to Admit Stat 05/12/23 08:00 Consult Gastroenterology Routine 05/12/23 14:56 Consult General Surgery Routine 05/17/23 09:52 Burn CD for patient Routine Procedures Performed Operation Date: 05/12/23 07:00 Actual Procedures p Esophagogastroduodenoscopy - Valentina Marquez DO s Endoscopic Ultrasonography Upper - Valentina Marquez DO p Endoscopic Retrograde Cholangiopancreato with spincterotomy, balloon sweep, stent placement - Valentina Marquez DO Ordered Studies 05/11/23 16:49 US gallbladder Stat 05/12/23 00:53 CT Abd and Pelvis [CT abd pelvis IV con only] Urgent 05/12/23 11:12 US upper EUS PACS images Routine 05/12/23 13:00 FL ERCP biliary ductal Routine 05/12/23 13:03 US upper EUS PACS images Routine 05/14/23 13:45 US abdomen limited Routine 05/15/23 11:41 CT abdomen w IV con Routine 05/16/23 21:01 CT Abd and Pelvis [CT abd pelvis IV con only] Stat Hospital Course (1) Abdominal pain: 52-year-old man with past medical significant for hyperlipidemia, hypothyroidism, sleep apnea, chronic kidney disease stage II, GERD, generalized osteoarthritis, Tourette's syndrome, chronic neck pain, PTSD, ADD, presents with worsening of his chronic abdominal pain w/ radiation to rt shoulder a/w nausea and dry heaves. Pt reports low appetite but no swallowing problem and reports losing 30 lbs in last 2 months. Pt reports getting shiga toxin in Apr. 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 Patient reports multiple loose stools per day at home. Says lost 30 pounds last 2 months; historical weight in our system seems to be stable arond 99Kg Chest and abdominal x-ray with no acute finding. DVT ultrasound with trace nonspecific pericholecystic fluid, no cholelithiasis or gallbladder wall thickening noted. No biliary ductal dilatation noted. CT of the abdomen and pelvis with no acute findings. Leukocytosis and mild fever at presentation. GI evaluated, recommends EUS plus minus ERCP/hepatitis panel, HUA, AMA, ASMA, HIV screening/antibiotic with biliary coverage. Follow-up for POZO with mild fibrosis as outpatient. EGD 05/12 normal exam. US 05/12 - dilatation of CBD up to 8 mm, 2 stones in the CBD, multiple stones in the GB, sludge in the GB, fatty infiltration of the liver, pancreas fairly WNL. ERCP 05/12major papilla appeared congested, choledocholithiasis was found -> complete removal was accomplished by biliary sphincterotomy and balloon extraction/1 biliary stent was placed into the common bile duct. Per GI, broad-spectrum antibiotic for 10 days, surgical referral to discuss cholecystectomy, ERCP in 6 weeks to remove the stent. Hepatitis panel negative, HIV screen negative Stool studies -positive C. difficile gene, negative C. difficile toxin, rest of the test negative. No need for further pain meds, reports pain under control LFTs trending down to almost normal c/w cipro and metron 05/12 for total of 10 days. Avoid NSAIDs x 7 days from 05/12 given ERCP/sphincterotomy. OP cholecystectomy per Gen Sx, f/u as OP. Likely post ERCP pancreatitis Patient with worsening epigastric pain since 05/14, likely secondary to post ERCP pancreatitis US abdomen 05/[address] abdomen 05/15 reviewed. Lipase trending down, clinically symptoms improving. No epigastric tenderness, patient reports improving pain, no use of pain medication noted, patient tolerating soft diet with no increase in pain. Patient advised to stay on soft diet/low-fat diet. Patient hemodynamically stable and will be discharged today. Chest pain: Says coming from abdomen. Troponin x3 negative. EKG with no acute ST or T changes. Other chronic medical conditions: History of hypothyroidism, and sleep apnea, GERD on Protonix, insomnia on Lunesta --- continue with/resume home meds as and when able. DVT prophylaxis SCDs for now Disposition med/telemetry. Full code Patient being discharged home with following instruction at the point of discharge: Follow-up with your primary care physician within a week time and likely you will need labs CBC/CMP/magnesium/phosphorus. Follow-up with your GI doctor in a month time to set yourself up for repeat ERCP in about 6 weeks time to remove the stent. Follow-up with your surgeons in 1 to 2 weeks time for your elective cholecystectomy. Take antibiotics as prescribed to complete 10-day course. Avoid NSAIDs for next 2 days as you had recent ERCP/sphincterotomy. Take your medications as prescribed. Please make sure that you are able to get your medications today by calling your pharmacy before you leave the hospital so that your treatment continuity is not broken. Home Health Attestation I certify that this patient is under my care and that I, or a physicians food service assistant working with me, had a face to-face encounter that meets the home health [id number] encounter requirements with this patient. The encounter with the patient was in whole, or in part, for the following medical condition, which is the primary reason for home health care (list medical condition): I certify that, based on my findings, the following services are medically ne cessary home health services: My clinical findings support the need for the above services because: Further, I certify that my clinical findings support that this patient is homebound (i.e. absences from home require considerable and taxing effort and are for medical reasons or [facility] services or infrequently or of short duration when for other reasons) because: Certification for Home Health Services: Based on the above findings, I certify that this patient is confined to the home and needs intermittent fpc care, physical therapy and/or speech therapy or continues to need occupational therapy. The patient is under my care, and I have initiated the establishment of the plan of care. This patient will be followed by a physician who will periodically review the plan of care. Total Time Total Time Spent Total Time Spent (In Minutes): 45 Discharge Plan Discharge Items Patient Disposition: Home - Self-Care Reason For Visit: ABDOMINAL PAIN, ELEVATED LFT, CHEST PAIN Discharge Diagnosis: Choledocholithiasis Transaminitis Post ERCP pancreatitis Activity: Resume your previous activity Non-emergency contact: Primary Care Provider Call non-emergency contact if: you have any medication questions Follow-up/Referrals: Valentina Marquez DO [Physician] - (The GI office will contact you for an appointment for stent removal. ) Naman Shea MD [Primary Care Provider] - 05/20/23 8:00 am (Date & Time 05/20/2023 8:00 AM Provider Lynda Cervantes PA-C Department Family Medicine [facility] ) Sneha Somers MD [Physician] - Diet: Low Fat Diet Texture: Dental soft (bite-sized) Addtl Attending Provider Instructions: Follow-up with your primary care physician within a week time and likely you will need labs CBC/CMP/magnesium/phosphorus. Follow-up with your GI doctor in a month time to set yourself up for repeat ERCP in about 6 weeks time to remove the stent. Follow-up with your surgeons in 1 to 2 weeks time for your elective cholecystectomy. Take antibiotics as prescribed to complete 10-day course. Avoid NSAIDs for next 2 days as you had recent ERCP/sphincterotomy. Take your medications as prescribed. Please make sure that you are able to get your medications today by calling your pharmacy before you leave the hospital so that your treatment continuity is not broken. Pending Studies at Discharge: No Stand-Alone Forms: My [employer], Smoking Cessation Medications and DC Order Prescriptions: New ciprofloxacin HCl 500 mg Tablet 500 mg PO BID 5 Days Qty: 10 0RF metronidazole 500 mg Tablet 500 mg PO TID 5 Days Qty: 15 0RF Advanced Probiotic 625 mg (10 billion cell) Capsule 2 cap PO DAILY 7 Days Qty: 14 0RF Continued pantoprazole 40 mg tablet,delayed release (DR/EC) 40 mg PO QAM mupirocin 2 % ointment 1 applic TOPICAL BID PRN (Reason: ..) lisinopril 2.5 mg tablet 2.5 mg PO QAM eszopiclone 3 mg tablet 3 mg PO HS fluticasone propion-salmeterol [Advair HFA] 230-21 mcg/actuation HFA aerosol inhaler 1 puff INHALATION BID Discharge Orders: Discharge Order (Routine); Ordered 05/17/23 Ordered By: Leyda Pacheco/Other Patient Handouts: Low-Fat Cooking Tips Admission Data Admit Date/Time: 05/11/23 20:42 Attending Provider: Leyda Rivera Admit Provider: Nigel Rodríguez Primary Care Provider: Naman Shea Other Providers: Nigel Rodríguez ; Ashlee Cash ; Ander Trujillo ; Gael Lance ; Renee Marquez ; Ernesto Lilly ; Sanya Bro ; Loraine Rendon ; Oma Ruth ; Murray Lim Jr ; Sneha Somers ; Jose Alberto Pike ; Jayla Duron
[2023-05-17 13:47] LABS: Anti Mitochondrial Antibody NEGATIVE (NEGATIVE); Anti Nuclear Antibody Screen NEGATIVE (NEGATIVE); Smooth Muscle Antibody NEGATIVE (NEGATIVE)
== END 2023-05-17 13:34 | disposition home or self-care (01) | DRG 444 ==
LOC: ED 15:41 → SUATTDRO 20:42 → 2W 20:42 → 3E 05-15 15:27